=== PATIENT | male | born 1960 | race Hispanic/Latino ===

== ENCOUNTER 2018-03-09 08:53 | Outpatient (CLI) | payer OTHER, SELFPAY ==
[2018-03-09] VITALS (9 sets, daily range): BP systolic 111–142; BP diastolic 68–90; PULSE 73–88; RESP 14–18; TEMP 36.2; O2SAT 96–100
--- NOTE | 2018-03-09 09:22 | DI.RAD.S_ITS ---
PROCEDURE: PAIN C/T INTERLAMINAR INJECT INDICATIONS: Cervical Stenosis with UE radic FINDINGS: Fluoroscopic spot filming was performed to verify placement of spinal needles at the dorsal C6-C7 level(s), as labeled on the films. Appropriate location(s) of the needle tip(s) was confirmed by injection of iodinated contrast. IMPRESSION: Successful C6-7 transplant or epidural needle tip localization for epidural steroid injection. Dictated by: Josh Griffin M.D. on 03/09/2018 at 13:13 Approved by: Josh Griffin M.D. on 03/09/2018 at 13:14
[2018-03-09] MEDS: MIDAZOLAM 5 MG/5 ML VIAL IV (09:50)
[2018-03-09] MEDS: fentaNYL 100 MCG/2 ML INJ IV (09:50)
[2018-03-09] MEDS: LIDOCAINE 1% 20 ML INJ 5 ML INJ (10:00)
[2018-03-09] MEDS: IOPAMIDOL 15 ML VIAL 3 ML INJ (10:00)
[2018-03-09] MEDS: DEXAMETHASONE 10 MG/ML VIAL 30 MG INJ (10:00)
--- NOTE | 2018-03-09 10:15 | PM.PROC.1 ---
Procedures Date/Time Date of procedure: 03/09/18 Time of procedure: 10:15 General Procedure description: PREOP DIAGNOSIS 1. CERVICAL STENOSIS, 2. CERVICAL HNP WITH UPPER EXTREMITY RADICULAR FEATURES, POST OP DIAGNOSIS 1. CERVICAL STENOSIS, 2. CERVICAL HNP WITH UPPER EXTREMITY RADICULAR FEATURES, PROCEDURES 1. FLUORSCOPICALLY GUIDED CONTRAST CONTROLLED INTERLAMINAR EPIDURAL STEROID INJECTION - C6/7 TL CAYLA PHYSICIAN: Kobi Brito, DO INDICATIONS Chinmay is referred by Dr. Nicholas for treatment of Cervical Stenosis with Upper Extremity Paresthesias. FINDINGS Cervical Stenosis due to disc deterioration and nerve root irritation and nerve root irritation DESCRIPTION OF PROCEDURE Fluoroscopically guided, contrast-controlled C6/7 translaminar epidural steroid injection with conscious sedation. Following denial of allergy and review of potential side effects and complications, including, but not necessarily limited to, infection, allergic reaction, local tissue breakdown, temporary as well as permanent nerve injury, stroke, paralysis, and possible , the patient indicated that patient understood and agreed to proceed. An informed consent document was signed by the patient, witnessed by a nurse, and placed in the patient's chart. Additionally, other treatment options including modalities, medications, and physical therapy were reviewed with the patient. After review of previous anaesthesic history and IV conscious sedation the patient was deemed safe to proceed with todays procedure with IV conscious sedation as ASA class II designation. Safety time-out was performed to confirm patient ID, procedure to be performed and site of procedure. IV sedation was accomplished with a combination of 5mg of Versed and 50mcg of Fentanyl administered by the RN after DO order, titrated to patient comfort during the course of the procedure while the patient remained responsive to all verbal commands. In the prone position, following sterile prep and drape of the cervical region, the C6/7 translaminar space was identified fluoroscopically. The skin was anesthetized via a 25-gauge 1.5-inch needle with 1% lidocaine solution. At this point, a 25-gauge, 2.5-inch short bevel spinal needle was atraumatically introduced and advanced under fluoroscopic guidance into epidural space at the C6/7 translaminar space. Depth was confirmed on lateral view. Radiological data, including multiple fluoroscopic views of the cervical spine, reveal a spinal needle at the C6/7 translaminar space. Lateral views then show placement of the needle in the epidural space. Subsequent views show contrast material flowing superiorly and inferiorly in the epidural space. DSA fluoroscopy with live contrast injection, once again, confirmed no vascular or intrathecal uptake. At this point, using loss of resistance technique with saline and air, the epidural space was entered. Following negative aspiration, injection of approximately 1.5 cc of Isovue-200 with live fluoroscopy in the AP view confirmed epidural flow in the epidural space without vascular or intrathecal uptake observed. Subsequently, a test dose of 1 cc of 1% lidocaine solution was injected and patient was observed for two minutes without signs or symptoms of complications, including abdominal pain, shortness of breath, bilateral upper or lower extremity weakness, nausea and vomiting, prior to steroid injection. At this point, 3 cc or 30 mg of dexamethasone was then injected without incident. The patient tolerated the procedure well without signs or symptoms of complications prior to being transferred to the recovery area for further monitoring, The patient was then transferred to the recovery area where they were observed for an appropriate period of time after the injection. The patient reported a VAS score of 6 prior to the procedure and a post-procedure VAS of 0. Total Fluoroscopy Time: 37.0 seconds Total Conscious Time: 24min POST OP INSTRUCTIONS The patient was provided a Pain Log to continue to record their response to the target-specific procedure prior to follow-up visit with the referring provider. Additionally, specific post-injection care instructions and a contact number to our office were provided if concerns arise regarding possible complications associated with the procedure are suspected. Kobi Brito DO Complications: none
== END 2018-03-09 10:45 | disposition home or self-care (01) ==
PROVIDERS: PCP Family Medicine; Visit Provider Physical Medicine & Rehabilitation
DX: M48.02 Spinal stenosis, cervical region (principal); M50.123 Cervical disc disorder at C6-C7 level with radiculopathy; R20.2 Paresthesia of skin; R51 Headache; Z98.890 Other specified postprocedural states
CPT/HCPCS: 62321; 99152; J1100; J2250; J3010

== ENCOUNTER 2018-03-22 08:54 | Outpatient (CLI) | payer OTHER, SELFPAY ==
[2018-03-22] VITALS (11 sets, daily range): BP systolic 125–170; BP diastolic 70–113; PULSE 65–94; RESP 16–20; TEMP 36.1; O2SAT 95–98
--- NOTE | 2018-03-22 08:56 | DI.RAD.S_ITS ---
PROCEDURE: PAIN L/S TRANSFORAMINAL INJECT INDICATIONS: SPONDYLOSIS FINDINGS: Fluoroscopic spot filming was performed to verify placement of spinal needles at the left L5-S1 level(s), as labeled on the films. Appropriate location(s) of the needle tip(s) was confirmed by injection of iodinated contrast. IMPRESSION: Successful left L5-S1 transforaminal needle tip localization for epidural steroid injection. Dictated by: Josh Griffin M.D. on 03/22/2018 at 16:14 Approved by: Josh Griffin M.D. on 03/22/2018 at 16:15
[2018-03-22] MEDS: MIDAZOLAM 5 MG/5 ML VIAL IV (09:45)
[2018-03-22] MEDS: fentaNYL 100 MCG/2 ML INJ 50 MCG IV (09:45)
[2018-03-22] MEDS: IOPAMIDOL 15 ML VIAL 3 ML INJ (09:51)
[2018-03-22] MEDS: BUPIVACAINE 0.25% (PF) VIAL 2 ML INJ (09:51)
[2018-03-22] MEDS: DEXAMETHASONE 10 MG/ML VIAL 20 MG INJ (09:52)
[2018-03-22] MEDS: methylPREDNISolone acetate 80 MG/ML VIAL INJ (09:52)
--- NOTE | 2018-03-22 10:00 | P.PCN_ITS ---
Procedures Date/Time Date of procedure: 03/22/18 Time of procedure: 09:59 General Procedure description: PREOP DIAGNOSIS 1. FORMAINAL STENOSIS WITH LE SYMPTOMS POST OP DIAGNOSIS 1. FORMAINAL STENOSIS WITH LE SYMPTOMS PROCEDURES 1. FLUOROSCOPICALLY GUIDED CONTRAST CONTROLLED TRANSFORAMINAL EPIDURAL STEROID INJECTION - Left L5/S1 PHYSICIAN: Kobi Brito DO INDICATIONS: Chinmay is referred by for treatment of HNP with Left LE Symptoms FINDINGS Foraminal Nerve Root Compression secondary to disc disease and facet hypertrophy DESCRIPTION OF PROCEDURE: Following denial of allergy and review of potential side effects and complications, including, but not necessarily limited to, infection, allergic reaction, local tissue breakdown, stroke, temporary or permanent nerve injury, paralysis, and possible , the patient indicated that the patient understood and agreed to proceed. An informed consent document was signed by the patient, witnessed by a nurse, and placed in the patient's chart. Additionally, other treatment options including medications, modalities, and physical therapy were reviewed with the patient. After review of previous anaesthesic history and IV conscious sedation the patient was deemed safe to proceed with todays procedure with IV conscious sedation as ASA class II designation. Safety time-out was performed to confirm patient ID, procedure to be performed and site of procedure. IV sedation was accomplished with a combination of 5mg of Versed and 50mcg of Fentanyl was administered by the RN after DO order, titrated to patient comfort during the course of the procedure while the patient remained responsive to all verbal commands In the prone position following sterile prep and drape of the lumbar region, the Left L5/S1 posterior neuroforamen was identified fluoroscopically. The skin was anesthetized via a 25-gauge 1.5-inch needle with 1% lidocaine solution. At this point, a 22-gauge 5-inch spinal needle was atraumatically introduced and advanced under fluoroscopic guidance through the posterior Left L5/S1 neuroforamen to approximately the anterior aspect of the canal. Depth was confirmed on lateral view. Following negative aspiration, injection of approximately 1.5 cc of Isovue 200 under live fluoroscopy in the AP view confirmed excellent flow along the nerve root, into the epidural space without vascular or intrathecal uptake observed Radiological data, including multiple fluoroscopic views of the lumbosacral spine, reveal a spinal needle at the Left L5/S1 posterior neuroforamen. Subsequent views show flow of contrast material flowing superiorly and inferiorly along the nerve root confirming epidural flow. Subsequently, a test dose of 1.5 cc of 1% lidocaine solution was administered and patient was observed for two minutes for signs or symptoms of complications , including abdominal pain, shortness of breath, bilateral upper or lower extremity weakness, nausea and vomiting, prior to steroid injection. At this point, a total of 3 cc or 20 mg of dexamethasone and 80mg Depo Medrol was injected without incident. The procedure tolerated the procedure well without signs or symptoms of complications prior to transfer to the recovery area continued monitoring without incident. The patient was then transferred to the recovery area where they were observed for an appropriate time after the injection. The patient reported a VAS score of 7 prior to the procedure and a post-procedure VAS of 0. Total Fluoroscopy Time: 20.9 seconds Total Conscious Sedation Time: 24min POST OP INSTRUCTIONS The patient was provided a Pain Log to continue to record their response to the target-specific procedure prior to follow-up visit with their referring physician. Additionally, specific post-injection care instructions and a contact number to our office were provided if concerns arise regarding possible complications associated with the procedure are suspected. Kobi Brito DO Complications: none
--- NOTE | 2018-03-23 12:49 | PC.NURSE ---
FOLLOW UP CALL MADE, LEFT PHONE MSG WITH CLINIC NUMBER FOR QUESTIONS/CONCERNS.
== END 2018-03-22 10:27 ==
PROVIDERS: PCP Family Medicine; Visit Provider Physical Medicine & Rehabilitation
DX: M47.27 Other spondylosis with radiculopathy, lumbosacral region (principal); M51.17 Intervertebral disc disorders with radiculopathy, lumbosacral region; M48.062 Spinal stenosis, lumbar region with neurogenic claudication; M99.04 Segmental and somatic dysfunction of sacral region
CPT/HCPCS: 64483; 99152; J1040; J1100; J2250; J3010

== ENCOUNTER 2018-05-04 08:05 | Outpatient (CLI) | payer OTHER, SELFPAY ==
[2018-05-04] VITALS (8 sets, daily range): BP systolic 135–171; BP diastolic 81–111; PULSE 77–93; RESP 16–20; TEMP 36.2; O2SAT 96–99
--- NOTE | 2018-05-04 | DI.RAD.S_ITS ---
PROCEDURE: PAIN L/S TRANSFORAMINAL INJECT INDICATIONS: Spondylosis without myelopathy or radiculopathy FINDINGS: Fluoroscopic spot filming was performed to verify placement of spinal needles at the right and left L5-S1 level(s), as labeled on the films. Appropriate location(s) of the needle tip(s) was confirmed by injection of iodinated contrast. Dictated by: Juwan Rosenthal M.D. on 05/04/2018 at 14:28 Approved by: Juwan Rosenthal M.D. on 05/04/2018 at 14:29
[2018-05-04] MEDS: fentaNYL 100 MCG/2 ML INJ IV (09:00)
[2018-05-04] MEDS: MIDAZOLAM 5 MG/5 ML VIAL IV ×2 (09:00)
[2018-05-04] MEDS: IOPAMIDOL 15 ML VIAL 3 ML INJ (09:10)
[2018-05-04] MEDS: BUPIVACAINE 0.25% (PF) VIAL 2 ML INJ (09:10)
[2018-05-04] MEDS: DEXAMETHASONE 10 MG/ML VIAL 20 MG INJ (09:10)
[2018-05-04] MEDS: methylPREDNISolone acetate 80 MG/ML VIAL INJ (09:10)
--- NOTE | 2018-05-04 09:10 | PC.NURSE ---
assisting pt off proc table and transporting back to post op area in wheelchair in stable condition
--- NOTE | 2018-05-04 09:22 | P.PCN_ITS ---
Procedures Date/Time Date of procedure: 05/04/18 Time of procedure: 09:20 General Procedure description: PREOP DIAGNOSIS 1. FORMAINAL STENOSIS WITH LE SYMPTOMS, POST OP DIAGNOSIS 1. FORMAINAL STENOSIS WITH LE SYMPTOMS, PROCEDURES 1.FLUOROSCOPICALLY GUIDED CONTRAST CONTROLLED TRANSFORAMINAL EPIDURAL STEROID INJECTION - RIGHT L5/S1 TFESI PHYSICIAN: Kobi Brito DO INDICATIONS: Chinmay is referred by for treatment of Foraminal Stenosis with right LE Symptoms FINDINGS Foraminal Nerve Root Compression secondary to disc disease and facet hypertrophy DESCRIPTION OF PROCEDURE Following denial of allergy and review of potential side effects and complications, including, but not necessarily limited to, infection, allergic reaction, local tissue breakdown, stroke, temporary or permanent nerve injury, paralysis, and possible , the patient indicated that the patient understood and agreed to proceed. An informed consent document was signed by the patient, witnessed by a nurse, and placed in the patient's chart. Additionally, other treatment options including medications, modalities, and physical therapy were reviewed with the patient. After review of previous anaesthesic history and IV conscious sedation the patient was deemed safe to proceed with todays procedure with IV conscious sedation as ASA class II designation. Safety time-out was performed to confirm patient ID, procedure to be performed and site of procedure. IV sedation was accomplished with a combination of 3mg was administered by the RN after DO order , titrated to patient comfort during the course of the procedure while the patient remained responsive to all verbal commands In the prone position following sterile prep and drape of the lumbar region, the right L5/S1 posterior neuroforamen was identified fluoroscopically. The skin was anesthetized via a 25-gauge 1.5-inch needle with 1% lidocaine solution. At this point, a 22-gauge 5-inch spinal needle was atraumatically introduced and advanced under fluoroscopic guidance through the posterior right L5/S1 neuroforamen to approximately the anterior aspect of the canal. Depth was confirmed on lateral view. Following negative aspiration, injection of approximately 1.5 cc of Isovue 200 under live fluoroscopy in the AP view confirmed excellent flow along the nerve root, into the epidural space without vascular or intrathecal uptake observed Radiological data, including multiple fluoroscopic views of the lumbosacral spine, reveal a spinal needle at the right L5/S1 posterior neuroforamen. Subsequent views show flow of contrast material flowing superiorly and inferiorly along the nerve root confirming epidural flow. Subsequently, a test dose of 1.5 cc of 1% lidocaine solution was administered and patient was observed for two minutes for signs or symptoms of complications , including abdominal pain, shortness of breath, bilateral upper or lower extremity weakness, nausea and vomiting, prior to steroid injection. At this point, a total of 3 cc or 20 mg of dexamethasone and 80mg Depo Medrol was injected without incident. The procedure tolerated the procedure well without signs or symptoms of complications prior to transfer to the recovery area continued monitoring without incident. The patient was then transferred to the recovery area where they were observed for an appropriate time after the injection. The patient reported a VAS score of 7 prior to the procedure and a post-procedure VAS of 0. Total Fluoroscopy Time: 20.9 seconds Total Conscious Sedation Time: 24min POST OP INSTRUCTIONS The patient was provided a Pain Log to continue to record their response to the target-specific procedure prior to follow-up visit with their referring physician. Additionally, specific post-injection care instructions and a contact number to our office were provided if concerns arise regarding possible complications associated with the procedure are suspected. Kobi Brito DO Complications: none
--- NOTE | 2018-05-04 09:40 | PC.NURSE ---
0918 Received pt post procedure from Brooke BACON, pt alert and able to move from w/c to chair on own power. Resumed Monitoring pt.
== END 2018-05-04 10:05 | disposition home or self-care (01) ==
PROVIDERS: PCP Family Medicine; Visit Provider Physical Medicine & Rehabilitation
DX: M48.07 Spinal stenosis, lumbosacral region (principal); M51.17 Intervertebral disc disorders with radiculopathy, lumbosacral region
CPT/HCPCS: 64483; 99152; J1040; J1100; J2250; J3010

== ENCOUNTER 2018-11-22 14:23 | Outpatient (CLI) | payer OTHER, SELFPAY ==
[2018-11-22] VITALS (7 sets, daily range): BP systolic 130–164; BP diastolic 85–97; PULSE 70–81; RESP 16–18; TEMP 36.7; O2SAT 95–100
--- NOTE | 2018-11-22 14:25 | DI.RAD.S_ITS ---
PROCEDURE: PAIN L/S TRANSFORAMINAL INJECT INDICATIONS: SPONDYLOSIS FINDINGS: Fluoroscopic spot filming was performed to verify placement of spinal needles at the L5-S1 level(s), as labeled on the films. Appropriate location(s) of the needle tip(s) was confirmed by injection of iodinated contrast. Dictated by: Juwan Rosenthal M.D. on 11/22/2018 at 16:06 Approved by: Juwan Rosenthal M.D. on 11/22/2018 at 16:06
[2018-11-22] MEDS: MIDAZOLAM 5 MG/5 ML VIAL IV (15:17)
[2018-11-22] MEDS: fentaNYL 100 MCG/2 ML INJ 50 MCG IV (15:17)
[2018-11-22] MEDS: BETAMETHASONE 30 MG/5 ML MDV 12 MG INJ (15:24)
[2018-11-22] MEDS: IOPAMIDOL 15 ML VIAL 3 ML INJ (15:24)
[2018-11-22] MEDS: DEXAMETHASONE 10 MG/ML VIAL 20 MG INJ (15:24)
[2018-11-22] MEDS: BUPIVACAINE 0.25% (PF) VIAL 2 ML INJ (15:24)
--- NOTE | 2018-11-22 15:30 | PC.NURSE ---
ASSISTING PT OFF TABLE AND TRANSPORTING TO POST PROC AREA IN STABLE CONDITION
--- NOTE | 2018-11-22 15:37 | P.PCN_ITS ---
Procedures Date/Time Date of procedure: 11/22/18 Time of procedure: 15:35 General Procedure description: PREOP DIAGNOSIS 1. FORMAINAL STENOSIS WITH LE SYMPTOMS POST OP DIAGNOSIS 1. FORMAINAL STENOSIS WITH LE SYMPTOMS PROCEDURES 1. FLUOROSCOPICALLY GUIDED CONTRAST CONTROLLED TRANSFORAMINAL EPIDURAL STEROID INJECTION - Left L5/S1 PHYSICIAN: Kobi Brito DO INDICATIONS: Chinmay is referred by Dr. Oquendo for treatment of Foraminal Stenosis with Left LE Symptoms FINDINGS Foraminal Nerve Root Compression secondary to disc disease and facet hypertrophy DESCRIPTION OF PROCEDURE: Following denial of allergy and review of potential side effects and complications, including, but not necessarily limited to, infection, allergic reaction, local tissue breakdown, stroke, temporary or permanent nerve injury, paralysis, and possible , the patient indicated that the patient understood and agreed to proceed. An informed consent document was signed by the patient, witnessed by a nurse, and placed in the patient's chart. Additionally, other treatment options including medications, modalities, and physical therapy were reviewed with the patient. After review of previous anaesthesic history and IV conscious sedation the pa tient was deemed safe to proceed with todays procedure with IV conscious sedation as ASA class II designation. Safety time-out was performed to confirm patient ID, procedure to be performed and site of procedure. IV sedation was accomplished with a combination of 5mg of Versed and 50mcg Fentanyl was administered by the RN after DO order, titrated to patient comfort during the course of the procedure while the patient remained responsive to all verbal commands In the prone position following sterile prep and drape of the lumbar region, the Left L5/S1 posterior neuroforamen was identified fluoroscopically. The skin was anesthetized via a 25-gauge 1.5-inch needle with 1% lidocaine solution. At this point, a 22-gauge 5-inch spinal needle was atraumatically introduced and advanced under fluoroscopic guidance through the posterior Left L5/S1 neuroforamen to approximately the anterior aspect of the canal. Depth was confirmed on lateral view. Following negative aspiration, injection of approximately 1.5 cc of Isovue 200 under live fluoroscopy in the AP view confirmed excellent flow along the nerve root, into the epidural space without vascular or intrathecal uptake observed Radiological data, including multiple fluoroscopic views of the lumbosacral spine, reveal a spinal needle at the Left L5/S1 posterior neuroforamen. Subsequent views show flow of contrast material flowing superiorly and inferiorly along the nerve root confirming epidural flow. Subsequently, a test dose of 1.5 cc of 1% lidocaine solution was administered and patient was observed for two minutes for signs or symptoms of complications, including abdominal pain, shortness of breath, bilateral upper or lower extremity weakness, nausea and vomiting, prior to steroid injection. At this point, a total of 2cc or 20mg of dexamethasone was injected without incident. The procedure tolerated the procedure well without signs or symptoms of complications prior to transfer to the recovery area continued monitoring without incident. The patient was then transferred to the recovery area where they were observed for an appropriate time after the injection. The patient reported a VAS score of 7 prior to the procedure and a post-procedure VAS of 0. Total Fluoroscopy Time: 20.9 seconds Total Conscious Sedation Time: 24min POST OP INSTRUCTIONS The patient was provided a Pain Log to continue to record their response to the target-specific procedure prior to follow-up visit with their referring physician. Additionally, specific post-injection care instructions and a contact number to our office were provided if concerns arise regarding possible complications associated with the procedure are suspected. Kobi Brito DO Complications: none
--- NOTE | 2018-11-22 15:57 | PC.NURSE ---
Pt returned via wheelchair awake and alert and able to move from w/c to chair without problems. Resumed monitoring from Brooke BACON.
== END 2018-11-22 16:04 ==
LOC: RAD 14:24
PROVIDERS: PCP Family Medicine; Visit Provider Physical Medicine & Rehabilitation
DX: M48.07 Spinal stenosis, lumbosacral region (principal); M51.17 Intervertebral disc disorders with radiculopathy, lumbosacral region; M96.1 Postlaminectomy syndrome, not elsewhere classified
CPT/HCPCS: 64483; 99152; J0702; J1100; J2250; J3010

== ENCOUNTER 2019-08-31 08:46 | Outpatient (CLI) | payer OTHER, SELFPAY ==
[2019-08-31] VITALS (10 sets, daily range): BP systolic 133–169; BP diastolic 86–105; PULSE 77–86; RESP 14–16; TEMP 36.7; O2SAT 95–99
--- NOTE | 2019-08-31 08:47 | DI.RAD.S_ITS ---
PROCEDURE: PAIN L/SI FACET INJ/BLK 1STL INDICATIONS: SPONDYLOSIS FINDINGS: Fluoroscopic spot filming was performed to verify placement of spinal needles at the L3, L4, L5 level(s), as labeled on the films. Appropriate location(s) of the needle tip(s) was confirmed by injection of iodinated contrast. Dictated by: Juwan Rosenthal M.D. on 08/31/2019 at 13:29 Approved by: Juwan Rosenthal M.D. on 08/31/2019 at 13:29
[2019-08-31] MEDS: MIDAZOLAM 5 MG/5 ML VIAL IV (09:35)
[2019-08-31] MEDS: fentaNYL 100 MCG/2 ML INJ 50 MCG IV (09:36)
[2019-08-31] MEDS: IOPAMIDOL 15 ML VIAL 3 ML INJ (09:40)
[2019-08-31] MEDS: BUPIVACAINE 0.5% (PF) VIAL 5 ML INJ (09:41)
--- NOTE | 2019-08-31 09:43 | PC.NURSE ---
ASSISTING PT OFF TABLE AND TRANSPORTING TO POST PROC AREA IN STABLE CONDITION. PASSING RN CARE OF PT OFF TO SKYLA Granados RN.
--- NOTE | 2019-08-31 09:44 | P.PCN_ITS ---
Procedures Date/Time Date of procedure: 08/31/19 Time of procedure: 09:44 General Procedure description: POST OP DIAGNOSIS 1. FACET ARTHROPATHY PROCEDURES 1. Left L4, L5 and S1 MB BLOCKS PHYSICIAN: Kobi Brito, INDICATIONS Chinmay is referred by and Jere for treatment of Left Axial LBP. DESCRIPTION OF PROCEDURE Fluoroscopically guided, contrast-controlled left L3, L4, L5 medial branch blocks with 0.5cc of 0.5% Marcaine. Following review of allergy and review of potential side effects and complications, including, but not necessarily limited to, infection, allergic reaction, local tissue breakdown, nerve injury, paralysis, stroke and possible , the patient indicated that the patient understood and agreed to proceed. An informed consent document was signed by the patient, witnessed by a nurse, and placed in the patient's chart. After review of previous anaesthesic history and IV conscious sedation the patient was deemed safe to proceed with todays procedure with IV conscious sedation as ASA class II designation. Safety time-out was performed to confirm patient ID, procedure to be performed and site of procedure. IV sedation was accomplished with a combination of 5mg of Versed and 50mcg of Fentanyl was administered by the RN after DO order, titrated to patient comfort during the course of the procedure while the patient remained responsive to all verbal commands. In the prone position, following sterile prep and drape of the lumbar region, the left L3, L4, L5 anatomical location of the medial branch of the dorsal ramus was identified fluoroscopically. Subsequently an anesthetic skin wheal using 1% lidocaine solution was initiated at each of the anatomical spots. Subsequently then a 22-gauge 3.5-inch spinal needle was atraumatically introduced and advanced under fluoroscopic guidance at each of the corresponding sites at the left L3, L4, L5 MB. After negative aspiration, 0.2 cc of Isovue 200 was injected, confirming placement without vascular or intrathecal uptake. S ubsequently then 0.5cc of 0.5% Marcaine solution was injected at each of the corresponding sites at the left L3, L4, L5 medial branch locations. The patient tolerated the procedure well without signs or symptoms of complications. The patient tolerated the procedure well without signs or symptoms of complications prior to transfer to the recovery area continued monitoring without incident. Post-procedure, the patient was monitored initiating provocative activities to measure the amount of relief from block of the facetogenic pain. The patient reported a VAS of 7 prior to the procedure and a post-procedure VAS of 1. It has been a pleasure to assist in the diagnostic and therapeutic care of your patient. Total Fluoroscopy Time: 4seconds Total Conscious Sedation Time: 24min POST OP INSTRUCTIONS The patient was provided with a Pain Log to complete over the next several hours and subsequent days prior to the patient's follow up with the ordering physician. If the patient has highway design engineer relief to the solution applied, then they may be a candidate for medial branch rhizotomy. The patient is aware, was provided, once again, with a Pain Log and will follow up with the referring physician for review and clinical correlation Kobi Brito DO Complications: none
--- NOTE | 2019-08-31 10:22 | PC.NURSE ---
Patient arrived from procedure via w/c accompanied by Brooke. Pt transferred to chair with standby assist, denies pain
== END 2019-08-31 10:10 | disposition home or self-care (01) ==
LOC: RAD 08:47
PROVIDERS: PCP Family Medicine; Referring Provider Physical Medicine & Rehabilitation; Visit Provider Physical Medicine & Rehabilitation
DX: M47.816 Spondylosis without myelopathy or radiculopathy, lumbar region (principal)
CPT/HCPCS: 64493; 64494; 99152; J2250; J3010

== ENCOUNTER → 2019-11-18 11:36 | Outpatient (CLI) | payer OTHER, SELFPAY ==
[2019-11-19 21:37] LABS: COVID19 Sendout Not Detected (Not Detect)
== END ==
PROVIDERS: PCP Family Medicine; Visit Provider Family Medicine
DX: Z01.818 Encounter for other preprocedural examination (principal)
CPT/HCPCS: 87635

== ENCOUNTER 2019-11-21 12:22 | Outpatient (CLI) | payer OTHER, SELFPAY ==
[2019-11-21] VITALS (9 sets, daily range): BP systolic 110–164; BP diastolic 68–101; PULSE 63–77; RESP 15–17; TEMP 36.1; O2SAT 95–99
--- NOTE | 2019-11-21 12:23 | DI.RAD.S_ITS ---
PROCEDURE: PAIN L/SI FACET INJ/BLK 1STL INDICATIONS: SPONDYLOSIS FINDINGS: Fluoroscopic spot filming was performed to verify placement of spinal needles at the L4, L5, S1 level(s), as labeled on the films. Appropriate location(s) of the needle tip(s) was confirmed by injection of iodinated contrast. Dictated by: Juwan Rosenthal M.D. on 11/21/2019 at 14:12 Approved by: Juwan Rosenthal M.D. on 11/21/2019 at 14:12
[2019-11-21] MEDS: fentaNYL 100 MCG/2 ML INJ 50 MCG IV (13:21)
[2019-11-21] MEDS: MIDAZOLAM 5 MG/5 ML VIAL IV (13:21)
[2019-11-21] MEDS: IOPAMIDOL 15 ML VIAL 3 ML INJ (13:28)
[2019-11-21] MEDS: LIDOCAINE 2% INJ SDV 1 ML INJ (13:29)
--- NOTE | 2019-11-21 13:33 | PC.NURSE ---
ASSISTING PT OFF TABLE AND TRANSPORTING TO POST PROC AREA IN STABLE CONDITION. PASSING RN CARE OF PT OFF TO [facility]LE[facility] TIJERINA.
--- NOTE | 2019-11-21 13:39 | PM.PROC.1 ---
Procedures Date/Time Date of procedure: 11/21/19 Time of procedure: 13:39 General Procedure description: POST OP DIAGNOSIS 1. FACET ARTHROPATHY PROCEDURES 1. Left L4, L5 and S1 MB BLOCKS PHYSICIAN: Kobi Brito, INDICATIONS Chinmay is referred by and Dr. Nicholas for treatment of Left Axial LBP. DESCRIPTION OF PROCEDURE Fluoroscopically guided, contrast-controlled left L4, L5 and S1 medial branch blocks with 0.5cc of 0.5% Marcaine. Following review of allergy and review of potential side effects and complications, including, but not necessarily limited to, infection, allergic reaction, local tissue breakdown, nerve injury, paralysis, stroke and possible , the patient indicated that the patient understood and agreed to proceed. An informed consent document was signed by the patient, witnessed by a nurse, and placed in the patient's chart. After review of previous anaesthesic history and IV conscious sedation the patient was deemed safe to proceed with todays procedure with IV conscious sedation as ASA class II designation. Safety time-out was performed to confirm patient ID, procedure to be performed and site of procedure. IV sedation was accomplished with a combination of 5mg of Versed and 50mcg of Fentanyl was administered by the RN after DO order, titrated to patient comfort during the course of the procedure while the patient remained responsive to all verbal commands. In the prone position, following sterile prep and drape of the lumbar region, the left L4, L5 and S1 anatomical location of the medial branch of the dorsal ramus was identified fluoroscopically. Subsequently an anesthetic skin wheal using 1% lidocaine solution was initiated at each of the anatomical spots. Subsequently then a 22-gauge 3.5-inch spinal needle was atraumatically introduced and advanced under fluoroscopic guidance at each of the corresponding sites at the left L4, L5 and S1 MB. After negative aspiration, 0.2 cc of Isovue 200 was injected, confirming placement without vascular or intrathecal uptake. Subsequently then 0.5 cc of 2% Lidocaine solution was injected at each of the corresponding sites at the left L4, L5 and S1 medial branch locations. The patient tolerated the procedure well without signs or symptoms of complications. The patient tolerated the procedure well without signs or symptoms of complications prior to transfer to the recovery area continued monitoring without incident. Post-procedure, the patient was monitored initiating provocative activities to measure the amount of relief from block of the facetogenic pain. The patient reported a VAS of 7 prior to the procedure and a post-procedure VAS of 0. It has been a pleasure to assist in the diagnostic and therapeutic care of your patient. Total Fluoroscopy Time: 8 seconds Total Conscious Sedation Time: 24min POST OP INSTRUCTIONS The patient was provided with a Pain Log to complete over the next several hours and subsequent days prior to the patient's follow up with the ordering physician. If the patient has double end production grinder relief to the solution applied, then they may be a candidate for medial branch rhizotomy. The patient is aware, was provided, once again, with a Pain Log and will follow up with the referring physician for review and clinical correlation Kobi Brito DO Complications: none
== END 2019-11-21 13:59 | disposition home or self-care (01) ==
LOC: RAD 12:23
PROVIDERS: PCP Family Medicine; Referring Provider Physical Medicine & Rehabilitation; Visit Provider Physical Medicine & Rehabilitation
DX: M47.816 Spondylosis without myelopathy or radiculopathy, lumbar region (principal); M47.817 Spondylosis without myelopathy or radiculopathy, lumbosacral region; M54.5 Low back pain
CPT/HCPCS: 64493; 64494; 99152; J2250; J3010

== ENCOUNTER → 2020-02-12 08:45 | Outpatient (CLI) | payer OTHER, BC, SELFPAY ==
[2020-02-13 07:24] LABS: COVID19 Sendout Not Detected (Not Detect)
== END ==
PROVIDERS: PCP Family Medicine; Visit Provider Physician Assistant
DX: Z11.59 Encounter for screening for other viral diseases (principal)
CPT/HCPCS: 87635

== ENCOUNTER 2020-02-15 07:05 | Outpatient (CLI) | payer OTHER, SELFPAY ==
[2020-02-15] VITALS (9 sets, daily range): BP systolic 149–186; BP diastolic 81–97; PULSE 63–75; RESP 13–23; TEMP 35.4; O2SAT 97–100
--- NOTE | 2020-02-15 07:37 | DI.RAD.S_ITS ---
PROCEDURE: PAIN L/S MED/LAT N RFA INDICATIONS: SPONDYLOSIS COMPARISON: None. FINDINGS: Fluoroscopic spot filming was performed to verify placement of spinal needles at the left L4, L5 and S1 level(s), as labeled on the films. Appropriate location(s) of the needle tip(s) was confirmed by injection of iodinated contrast. IMPRESSION: Fluoroscopy for pain management. Dictated by: Issac Jones M.D. on 02/15/2020 at 10:02 Approved by: Issac Jones M.D. on 02/15/2020 at 10:03
--- NOTE | 2020-02-15 08:34 | PC.NURSE ---
Patient is A& O able to make needs known. Green pain log reviewed with post injection instructions. Has no questions or concerns at this time.
[2020-02-15] MEDS: LIDOCAINE 1% 20 ML 10 ML INJ (08:53)
[2020-02-15] MEDS: BUPIVACAINE 0.5% (PF) VIAL 5 ML INJ (08:54)
[2020-02-15] MEDS: MIDAZOLAM 5 MG/5 ML VIAL IV (08:54)
[2020-02-15] MEDS: fentaNYL 100 MCG/2 ML INJ 50 MCG IV (08:54)
--- NOTE | 2020-02-15 09:10 | P.PCN_ITS ---
Date/Time/Diagnoses Date of procedure: 02/15/20 Time of procedure: 09:10 Pre-procedure diagnosis: 1. RECALCITRANT FACET ARTHROPATHY Post-procedure diagnosis: same Procedure Notes Procedure: 1. LEFT L3, L4 AND L5 MEDIAL BRANCH RADIOFREQUENCY NEUROTOMY Indications: Chinmay is referred by for treatment of facet arthropathy. Physician: Kobi Brito Total Fluoroscopy time (seconds): 19 Total sedation minutes: 16 Complications: none Procedure in detail & Post-procedure care: DESCRIPTION OF PROCEDURE Left L3, L4 and L5 medial branch radio-frequency neurotomy The patient is well known to this clinic having undergone previous facet injections with good but temporary relief. The patient has experienced appropriate, concordant relief with previous facet and median branch blocks but the patient's pain has been recalcitrant to further conservative measures. Therefore, based upon the patient's relief and persistent symptoms, the patient is considered an appropriate candidate for facet rhizotomy. All of the patient's questions regarding the risks versus benefits of the procedure, including, but not limited to, bleeding, infection, temporary as well as lasting nerve injury, paralysis, stroke, and , as well treatment alternatives were answered to satisfaction. After obtaining informed consent, denial of pertinent drug allergies, as well as being made aware of the potential risks of bleeding, infection, spinal cord trauma, paralysis, temporary and permanent nerve damage, seizure, stroke, and possible , the patient was brought to the fluoroscopy suite and positioned prone on the fluoroscopy table. The lumbar region was prepped with Betadine and covered with a fenestrated drape in the usual sterile fashion. Appropriate monitors applied including pulse oximeter, pulse, and blood pressure for regular monitoring throughout the procedure. After review of previous anaesthesic history and IV conscious sedation the patient was deemed safe to proceed with today?s procedure with IV conscious sedation as ASA class II designation. Safety time-out was performed to confirm patient ID, procedure to be performed and site of procedure. IV sedation was accomplished with a combination of 5mg of Versed and 50mcg of Fentanyl administered by the RN after DO order, titrated to patient comfort during the course of the procedure while the patient remained responsive to all verbal commands. After local infiltration using 1% lidocaine, under fluoroscopic guidance, a 10- cm RF insulated needle with a 10-mm active tip was positioned parallel to the junction of the left the superior articulating process where the L3 medial branch resides. Needle placement was confirmed with sensory stimulation at 50 Hz, with motor stimulation of .5v on the left which produced local stimulation without radicular component. The stimulation was then increased to 1.5v with, once again, only local multifidus stimulation without radicular component. This was then followed by two discreet lesions performed at 80 degrees Celsius for 90 seconds each. The needle was then removed and the identical procedure was performed along the length of the left L4 medial branch with motor stimulation at .7v on the left. The identical procedure was once again performed along the length of the left L5 and medial branch with motor stimulation of .5v. The patient tolerated the procedure well without signs or symptoms of complications prior to transfer to the recovery area continued monitoring without incident. The patient was then transferred to the recovery area where they were observed for an appropriate period of time after the injection. The patient reported a VAS score of 7 prior to the procedure and a post-procedure VAS of 0. POST OP INSTRUCTIONS The patient was provided a Pain Log to continue to record the patient's response to the target-specific procedure prior to the patient's follow-up visit with the referring physician. Additionally, specific post-injection care instructions and a contact number to our office were provided if concerns arise regarding possible complications associated with the procedure are suspected.
--- NOTE | 2020-02-15 09:13 | PC.NURSE ---
pt tolerated procedure well, assisted from table to wc. monitoring resumed in pre proc room
--- NOTE | 2020-02-15 09:33 | PC.NURSE ---
Patient was steady on his feet. Denies any pain. Left via W/c picked up. Has no questions or concerns at this time.
== END 2020-02-15 09:20 | disposition home or self-care (01) ==
PROVIDERS: PCP Family Medicine; Referring Provider Family Medicine; Visit Provider Physical Medicine & Rehabilitation
DX: M47.816 Spondylosis without myelopathy or radiculopathy, lumbar region (principal)
CPT/HCPCS: 64635; 64636; 99152; 99153; J2250; J3010

== ENCOUNTER 2020-04-25 07:30 | Outpatient (CLI) | payer OTHER, BC, SELFPAY ==
--- NOTE | 2020-04-25 07:32 | DI.RAD.S_ITS ---
PROCEDURE: PAIN L/SI FACET INJ/BLK 1STL INDICATIONS: SPONDYLOSIS COMPARISON: None. FINDINGS: Fluoroscopic spot filming was performed to verify placement of spinal needles at the right L3, L4, and L5 level(s), as labeled on the films. Appropriate location(s) of the needle tip(s) was confirmed by injection of iodinated contrast. IMPRESSION: Fluoroscopy for pain management. Dictated by: Issac Jones M.D. on 04/25/2020 at 9:24 Approved by: Issac Jones M.D. on 04/25/2020 at 9:25
[2020-04-25 07:42] VITALS: BP 176/97; PULSE 75; RESP 16; TEMP 36.1; O2SAT 95
[2020-04-25 08:35] VITALS: BP 179/100; PULSE 84; RESP 14; O2SAT 97
[2020-04-25] MEDS: LIDOCAINE 1% 20 ML 10 ML INJ (08:37)
[2020-04-25] MEDS: BUPIVACAINE 0.5% (PF) VIAL 2 ML INJ (08:37)
[2020-04-25] MEDS: IOPAMIDOL 15 ML VIAL 3 ML INJ (08:37)
[2020-04-25 08:40] VITALS: BP 201/90; PULSE 77; RESP 16; O2SAT 99
[2020-04-25 08:42] VITALS: BP 199/104; PULSE 72; RESP 14; O2SAT 98
--- NOTE | 2020-04-25 08:47 | PM.PROC.IR.1 ---
Date/Time/Diagnoses Date of procedure: 04/25/20 Time of procedure: 08:47 Pre-procedure diagnosis: 1. FACET ARTHROPATHY Post-procedure diagnosis: same Procedure Notes Procedure: 1. Right L3, L4 and L5 MB BLOCKS Indications: Chinmay is referred by Dr. Nicholas and Dr. Oquendo for treatment of Right Axial LBP. Physician: Kobi Brito Total Fluoroscopy time (seconds): 9 Total sedation minutes: 0 Complications: none Procedure in detail & Post-procedure care: DESCRIPTION OF PROCEDURE Fluoroscopically guided, contrast-controlled right L3, L4 and L5 medial branch blocks with 0.5cc of 0.5% Marcaine. Following review of allergy and review of potential side effects and complications, including, but not necessarily limited to, infection, allergic reaction, local tissue breakdown, nerve injury, paralysis, stroke and possible , the patient indicated that the patient understood and agreed to proceed. An informed consent document was signed by the patient, witnessed by a nurse, and placed in the patient's chart. After review of previous anaesthesic history and IV conscious sedation the patient was deemed safe to proceed with today?s procedure with IV conscious sedation as ASA class II designation. Safety time-out was performed to confirm patient ID, procedure to be performed and site of procedure. IV sedation was deemed unnecessary and thus not administered by the RN after DO order, titrated to patient comfort during the course of the procedure while the patient remained responsive to all verbal commands In the prone position, following sterile prep and drape of the lumbar region, the right L3, L4 and L5 anatomical location of the medial branch of the dorsal ramus was identified fluoroscopically. Subsequently an anesthetic skin wheal using 1% lidocaine solution was initiated at each of the anatomical spots. Subsequently then a 22-gauge 3.5-inch spinal needle was atraumatically introduced and advanced under fluoroscopic guidance at each of the corresponding sites at the right L3, L4 and L5 MB. After negative aspiration, 0.2 cc of Isovue 200 was injected, confirming placement without vascular or intrathecal uptake. Subsequently then 0.5cc of 0.5% Marcaine solution was injected at each of the corresponding sites at the right L3, L4 and L5 medial branch locations. The patient tolerated the procedure well without signs or symptoms of complications. The procedure tolerated the procedure well without signs or symptoms of complications prior to transfer to the recovery area continued monitoring without incident. Post-procedure, the patient was monitored initiating provocative activities to measure the amount of relief from block of the facetogenic pain. The patient reported a VAS of 7 prior to the procedure and a post-procedure VAS of 1. It has been a pleasure to assist in the diagnostic and therapeutic care of your patient. POST OP INSTRUCTIONS The patient was provided with a Pain Log to complete over the next several hours and subsequent days prior to the patient's follow up with the ordering physician. If the patient has refrigerated national truck driver relief to the solution applied, then they may be a candidate for medial branch rhizotomy. The patient is aware, was provided, once again, with a Pain Log and will follow up with the referring physician for review and clinical correlation.
[2020-04-25 08:50] VITALS: BP 165/91; PULSE 78; RESP 16; O2SAT 98
== END 2020-04-25 09:00 | disposition home or self-care (01) ==
LOC: RAD 07:31
PROVIDERS: PCP Family Medicine; Referring Provider Family Medicine; Visit Provider Physical Medicine & Rehabilitation
DX: M47.816 Spondylosis without myelopathy or radiculopathy, lumbar region (principal); M54.5 Low back pain
CPT/HCPCS: 64493; 64494; J2250; J3010

== ENCOUNTER → 2020-06-04 09:14 | Outpatient (CLI) | payer OTHER, BC, SELFPAY ==
[2020-06-04 11:23] LABS: COVID19 -Nasal RAPID Negative (Negative)
== END ==
PROVIDERS: PCP Family Medicine; Visit Provider Physical Medicine & Rehabilitation
DX: Z01.812 Encounter for preprocedural laboratory examination (principal); Z11.59 Encounter for screening for other viral diseases
CPT/HCPCS: 87635; C9803

== ENCOUNTER 2020-06-06 08:04 | Outpatient (CLI) | payer OTHER, BC, SELFPAY ==
[2020-06-06] VITALS (9 sets, daily range): BP systolic 137–187; BP diastolic 79–91; PULSE 57–72; RESP 12–21; TEMP 36.2; O2SAT 95–99
--- NOTE | 2020-06-06 08:12 | DI.RAD.S_ITS ---
PROCEDURE: XR CERVICAL SPINE 4V OR 5V INDICATIONS: C6/7 TL CAYLA TECHNIQUE: 6 views of the cervical spine acquired. COMPARISON: [facility], CT, CT CERVICAL SPINE WITHOUT CONTRAST, 08/20/2017, 8:15. [facility], CT, CT CERVICAL SPINE WITHOUT CONTRAST, 12/22/2019, 11:28. FINDINGS: Bones: No fractures or dislocations to the T1 level. Oblique images demonstrate no bony foraminal stenoses. Note is made of prior interbody disc prosthesis devices in stable position from prior imaging, at C5-6 and C6-7. Mild foraminal stenosis, symmetric bilaterally, from C4 through C7 is again noted. No appreciable worsening. Soft tissues: No prevertebral soft tissue swelling. IMPRESSION: Stable postsurgical changes at C5-6 and C6-7 of interbody disc prosthesis devices, with stable mild intervertebral neural foraminal stenosis again noted. Source of new pain is not seen. Dictated by: Josh Griffin M.D. on 06/06/2020 at 10:32 Approved by: Josh Griffin M.D. on 06/06/2020 at 10:34
--- NOTE | 2020-06-06 08:12 | DI.RAD.S_ITS ---
PROCEDURE: PAIN C/T INTERLAMINAR INJECT INDICATIONS: SPINAL STENOSIS COMPARISON: [facility], , PAIN C/T INTERLAMINAR INJECT, 03/09/2018, 9:57. FINDINGS: Fluoroscopic spot filming was performed to verify placement of a spinal needle at the C6-C7 level, as labeled on the films. Appropriate location of the needle tip was confirmed by injection of iodinated contrast. IMPRESSION: Intraprocedural examination within normal limits. Dictated by: Devonte Jimenez M.D. on 06/06/2020 at 9:28 Approved by: Devonte Jimenez M.D. on 06/06/2020 at 9:28
[2020-06-06] MEDS: fentaNYL 100 MCG/2 ML INJ IV (09:18)
[2020-06-06] MEDS: fentaNYL 100 MCG/2 ML INJ 50 MCG IV (09:18)
[2020-06-06] MEDS: MIDAZOLAM 5 MG/5 ML VIAL IV (09:18)
[2020-06-06] MEDS: DEXAMETHASONE 10 MG/ML VIAL 30 MG INJ (09:39)
[2020-06-06] MEDS: IOPAMIDOL 15 ML VIAL 3 ML INJ (09:39)
[2020-06-06] MEDS: BUPIVACAINE 0.25% (PF) VIAL 2 ML INJ (09:39)
--- NOTE | 2020-06-06 09:39 | PM.PROC.IR.1 ---
Date/Time/Diagnoses Date of procedure: 06/06/20 Time of procedure: 09:40 Pre-procedure diagnosis: 1. CERVICAL STENOSIS, 2. CERVICAL HNP WITH UPPER EXTREMITY RADICULAR FEATURES Post-procedure diagnosis: same Procedure Notes Procedure: 1. FLUORSCOPICALLY GUIDED CONTRAST CONTROLLED INTERLAMINAR EPIDURAL STEROID INJECTION - C6/7 TL CAYLA Indications: Chinmay is referred by Dr. Nicholas and Dr. Oquendo for treatment of Cervical HNP with Upper Extremity Paresthesias. Physician: Kobi Brito Total Fluoroscopy time (seconds): 48 Total sedation minutes: 18 Complications: none Procedure in detail & Post-procedure care: FINDINGS Cervical Stenosis due to disc deterioration and nerve root irritation and nerve root irritation DESCRIPTION OF PROCEDURE Fluoroscopically guided, contrast-controlled C6/7 translaminar epidural steroid injection with conscious sedation. Following review of allergy and review of potential side effects and complications, including, but not necessarily limited to, infection, allergic reaction, local tissue breakdown, temporary as well as permanent nerve injury, stroke, paralysis, and possible , the patient indicated that patient understood and agreed to proceed. An informed consent document was signed by the patient, witnessed by a nurse, and placed in the patient's chart. Additionally, other treatment options including modalities, medications, and physical therapy were reviewed with the patient. After review of previous anaesthesic history and IV conscious sedation the patient was deemed safe to proceed with today?s procedure with IV conscious sedation as ASA class II designation. Safety time-out was performed to confirm patient ID, procedure to be performed and site of procedure. IV sedation was accomplished with a combination of 5mg of Versed and 100mcg of Fentanyl administered by the RN after DO order, titrated to patient comfort during the course of the procedure while the patient remained responsive to all verbal commands. In the prone position, following sterile prep and drape of the cervical region, the C6/7 translaminar space was identified fluoroscopically. The skin was anesthetized via a 25-gauge 1.5-inch needle with 1% lidocaine solution. At this point, a 25-gauge, 2.5-inch short bevel spinal needle was atraumatically introduced and advanced under fluoroscopic guidance into epidural space at the C6/7 translaminar space. Depth was confirmed on lateral view. Radiological data, including multiple fluoroscopic views of the cervical spine, reveal a spinal needle at the C6/7 translaminar space. Lateral views then show placement of the needle in the epidural space. Subsequent views show contrast material flowing superiorly and inferiorly in the epidural space. DSA fluoroscopy with live contrast injection, once again, confirmed no vascular or intrathecal uptake. At this point, using loss of resistance technique with saline and air, the epidural space was entered. Following negative aspiration, injection of approximately 1.5 cc of Isovue-200 with live fluoroscopy in the AP view confirmed epidural flow in the epidural space without vascular or intrathecal uptake observed. Subsequently, a test dose of 1 cc of 1% lidocaine solution was injected and patient was observed for two minutes without signs or symptoms of complications, including abdominal pain, shortness of breath, bilateral upper or lower extremity weakness, nausea and vomiting, prior to steroid injection. At this point, 3cc or 30mg of dexamethasone was then injected without incident. The patient tolerated the procedure well without signs or symptoms of complications prior to being transferred to the recovery area for further monitoring, The patient was then transferred to the recovery area where they were observed for an appropriate period of time after the injection. The patient reported a VAS score of 6 prior to the procedure and a post-procedure VAS of 0. POST OP INSTRUCTIONS The patient was provided a Pain Log to continue to record their response to the target-specific procedure prior to follow-up visit with the referring provider. Additionally, specific post-injection care instructions and a contact number to our office were provided if concerns arise regarding possible complications associated with the procedure are suspected.
== END 2020-06-06 10:02 | disposition home or self-care (01) ==
PROVIDERS: PCP Family Medicine; Referring Provider Family Medicine; Visit Provider Physical Medicine & Rehabilitation
DX: M48.02 Spinal stenosis, cervical region (principal); M50.123 Cervical disc disorder at C6-C7 level with radiculopathy; R20.2 Paresthesia of skin
CPT/HCPCS: 62321; 72050; 99152; J1100; J2250; J3010

== ENCOUNTER → 2020-07-24 08:26 | Outpatient (CLI) | payer OTHER, BC, SELFPAY ==
--- NOTE | 2020-07-24 08:27 | DI.RAD.S_ITS ---
PROCEDURE: XR LUMBAR SPINE MIN 4V INDICATIONS: lbp TECHNIQUE: 5 views of the lumbar spine were acquired. COMPARISON: [facility], MR, MR LUMBAR SPINE WITHOUT CONTRAST, 03/01/2018, 11:12. [facility], CR, XR LUMBAR SPINE WITH OBLIQUES, 02/14/2018, 8:47. [facility], CR, L-SPINE 2-3 VIEWS, 11/06/2014, 0:00. FINDINGS: Bones: 5 nonrib-bearing vertebrae are present. There is slightly dextroscoliotic bony alignment centered at L2. No vertebral body compression fractures. No suspicious bony lesions. The pattern of degenerative disc disease and facet osteoarthritis is little if any change from the comparison study 02/14/18. No compression fracture has developed. Soft tissues: Overlying bowel gas pattern is normal. No suspicious soft tissue calcifications. Oblique images: No pars defects. IMPRESSION: Previously present degenerative disc disease and facet osteoarthritis is moderate to moderately severe over time, without appreciable progression from 2018 to the current study. No compression fracture or subluxation is found. Multilevel spinal and foraminal stenosis would be expected. Dictated by: Josh Griffin M.D. on 07/24/2020 at 9:05 Approved by: Josh Griffin M.D. on 07/24/2020 at 9:07
== END ==
PROVIDERS: PCP Family Medicine; Referring Provider Physical Medicine & Rehabilitation; Visit Provider Physical Medicine & Rehabilitation
DX: M47.816 Spondylosis without myelopathy or radiculopathy, lumbar region (principal); M47.817 Spondylosis without myelopathy or radiculopathy, lumbosacral region; M96.1 Postlaminectomy syndrome, not elsewhere classified; M51.36 Other intervertebral disc degeneration, lumbar region; M54.12 Radiculopathy, cervical region; Z98.890 Other specified postprocedural states
CPT/HCPCS: 72110; 99214

== ENCOUNTER → 2020-08-20 14:06 | Outpatient (CLI) | payer OTHER, BC, SELFPAY ==
[2020-08-20 15:53] LABS: COVID19 -Nasal RAPID Negative (Negative)
== END ==
PROVIDERS: PCP Family Medicine; Visit Provider Physical Medicine & Rehabilitation
DX: Z20.822 Contact with and (suspected) exposure to COVID-19 (principal)
CPT/HCPCS: 87635; C9803

== ENCOUNTER 2020-08-22 12:15 | Outpatient (CLI) | payer OTHER, BC, SELFPAY ==
[2020-08-22] VITALS (9 sets, daily range): BP systolic 109–145; BP diastolic 54–84; PULSE 63–71; RESP 12–18; TEMP 36.4; O2SAT 95–98
--- NOTE | 2020-08-22 12:17 | DI.RAD.S_ITS ---
PROCEDURE: PAIN L/SI FACET INJ/BLK 1STL INDICATIONS: SPONDYLOSIS COMPARISON: [facility], XA, PAIN L/SI FACET INJ/BLK 1STL, 04/25/2020, 8:35. [facility], XA, PAIN L/SI FACET INJ/BLK 1STL, 11/21/2019, 12:24. FINDINGS: Fluoroscopic spot filming was performed to verify placement of spinal needles at the L3, L4, and L5 neural foraminal level(s), as labeled on the films. Appropriate location(s) of the needle tip(s) was confirmed by injection of iodinated contrast. IMPRESSION: Successful right-sided neuroforaminal localization for medial branch block procedures at L3, L4 and L5. Dictated by: Josh Griffin M.D. on 08/22/2020 at 13:33 Approved by: Josh Griffin M.D. on 08/22/2020 at 13:35
[2020-08-22] MEDS: MIDAZOLAM 5 MG/5 ML VIAL IV (13:07)
[2020-08-22] MEDS: IOPAMIDOL 15 ML VIAL 3 ML INJ (13:11)
[2020-08-22] MEDS: BUPIVACAINE 0.5% (PF) VIAL 5 ML INJ (13:11)
--- NOTE | 2020-08-22 13:19 | P.PCN_ITS ---
Date/Time/Diagnoses Date of procedure: 08/22/20 Time of procedure: 13:19 Pre-procedure diagnosis: 1. FACET ARTHROPATHY Post-procedure diagnosis: same Procedure Notes Procedure: 1. Right L3, L4 and L5 MB BLOCKS Indications: Chinmay is referred by Drs. Nicholas and Jere for treatment of Right Axial LBP. Physician: Kobi Brito Total Fluoroscopy time (seconds): 6 Total sedation minutes: 9 Complications: none Procedure in detail & Post-procedure care: DESCRIPTION OF PROCEDURE Fluoroscopically guided, contrast-controlled right L3, L4 and L5 medial branch blocks with 0.5cc of 0.5% Marcaine. Following review of allergy and review of potential side effects and complications, including, but not necessarily limited to, infection, allergic reaction, local tissue breakdown, nerve injury, paralysis, stroke and possible , the patient indicated that the patient understood and agreed to proceed. An informed consent document was signed by the patient, witnessed by a nurse, and placed in the patient's chart. After review of previous anaesthesic history and IV conscious sedation the patient was deemed safe to proceed with today?s procedure with IV conscious sedation as ASA class II designation. Safety time-out was performed to confirm patient ID, procedure to be performed and site of procedure. IV sedation was accomplished with a combination of 2mg of Versed was administered by the RN afte r DO order, titrated to patient comfort during the course of the procedure while the patient remained responsive to all verbal commands In the prone position, following sterile prep and drape of the lumbar region, the right L3, L4, L5 anatomical location of the medial branch of the dorsal ramus was identified fluoroscopically. Subsequently an anesthetic skin wheal using 1% lidocaine solution was initiated at each of the anatomical spots. Subsequently then a 22-gauge 3.5-inch spinal needle was atraumatically introduced and advanced under fluoroscopic guidance at each of the corresponding sites at the right L3, L4, L5 MB. After negative aspiration, 0.2 cc of Isovue 200 was injected, confirming placement without vascular or intrathecal uptake. Subsequently, then 0.5cc of 0.5% Marcaine solution was injected at each of the corresponding sites at the right L3, L4 and L5 medial branch locations. The patient tolerated the procedure well without signs or symptoms of complications. The procedure tolerated the procedure well without signs or symptoms of complications prior to transfer to the recovery area continued monitoring without incident. Post-procedure, the patient was monitored initiating provocative activities to measure the amount of relief from block of the facetogenic pain. The patient reported a VAS of 7 prior to the procedure and a post-procedure VAS of 1. It has been a pleasure to assist in the diagnostic and therapeutic care of your patient. POST OP INSTRUCTIONS The patient was provided with a Pain Log to complete over the next several hours and subsequent days prior to the patient's follow up with the ordering physician. If the patient has social media senior associate relief to the solution applied, then they may be a candidate for medial branch rhizotomy. The patient is aware, was provided, once again, with a Pain Log and will follow up with the referring physician for review and clinical correlation.
== END 2020-08-22 13:50 | disposition home or self-care (01) ==
LOC: RAD 12:16
PROVIDERS: PCP Family Medicine; Referring Provider Physical Medicine & Rehabilitation; Visit Provider Physical Medicine & Rehabilitation
DX: M47.816 Spondylosis without myelopathy or radiculopathy, lumbar region (principal); M54.5 Low back pain
CPT/HCPCS: 64493; 64494; J2250; J3010

== ENCOUNTER → 2020-09-03 12:57 | Outpatient (CLI) | payer OTHER, SELFPAY ==
[2020-09-03 14:14] LABS: COVID19 -Nasal RAPID Negative (Negative)
== END ==
PROVIDERS: PCP Family Medicine; Visit Provider Physical Medicine & Rehabilitation
DX: Z20.822 Contact with and (suspected) exposure to COVID-19 (principal)
CPT/HCPCS: 87635; C9803

== ENCOUNTER 2020-09-05 07:29 | Outpatient (CLI) | payer OTHER, SELFPAY ==
[2020-09-05] VITALS (10 sets, daily range): BP systolic 126–150; BP diastolic 62–84; PULSE 63–80; RESP 12–24; TEMP 36.3; O2SAT 92–99
--- NOTE | 2020-09-05 07:54 | DI.RAD.S_ITS ---
PROCEDURE: PAIN C/T INTERLAMINAR INJECT INDICATIONS: SPINAL STENOSIS COMPARISON: [facility], XA, PAIN C/T INTERLAMINAR INJECT, 06/06/2020, 9:21. [facility], XA, PAIN C/T INTERLAMINAR INJECT, 03/09/2018, 9:57. FINDINGS: Fluoroscopic spot filming was performed to verify placement of spinal needles at the C6-C7 dorsal interlaminar level, as labeled on the films. Appropriate location(s) of the needle tip(s) was confirmed by injection of iodinated contrast. IMPRESSION: Interlaminar C6-7 needle tip localization for epidural steroid injection. Dictated by: Josh Griffin M.D. on 09/05/2020 at 10:09 Approved by: Josh Griffin M.D. on 09/05/2020 at 10:10
[2020-09-05] MEDS: fentaNYL 100 MCG/2 ML INJ 50 MCG IV (08:22)
[2020-09-05] MEDS: MIDAZOLAM 5 MG/5 ML VIAL IV (08:22)
[2020-09-05] MEDS: IOPAMIDOL 15 ML VIAL 3 ML INJ (08:38)
[2020-09-05] MEDS: DEXAMETHASONE 10 MG/ML VIAL 30 MG INJ (08:38)
[2020-09-05] MEDS: BUPIVACAINE 0.25% (PF) VIAL 2 ML INJ (08:38)
--- NOTE | 2020-09-05 08:42 | P.PCN_ITS ---
Date/Time/Diagnoses Date of procedure: 09/05/20 Time of procedure: 08:43 Pre-procedure diagnosis: 1. CERVICAL STENOSIS, 2. CERVICAL HNP WITH UPPER EXTREMITY RADICULAR FEATURES Post-procedure diagnosis: same Procedure Notes Procedure: 1. FLUORSCOPICALLY GUIDED CONTRAST CONTROLLED INTERLAMINAR EPIDURAL STEROID INJECTION - C6/7 TL CAYLA Indications: Chinmay is referred by Dr. Oquendo for treatment of Cervical HNP with Upper Extremity Paresthesias. Physician: Kobi Brito Total Fluoroscopy time (seconds): 26 Total sedation minutes: 14 Complications: none Procedure in detail & Post-procedure care: FINDINGS Cervical Stenosis due to disc deterioration and nerve root irritation and nerve root irritation DESCRIPTION OF PROCEDURE Fluoroscopically guided, contrast-controlled C6/7 translaminar epidural steroid injection with conscious sedation. Following review of allergy and review of potential side effects and complications, including, but not necessarily limited to, infection, allergic reaction, local tissue breakdown, temporary as well as permanent nerve injury, stroke, paralysis, and possible , the patient indicated that patient understood and agreed to proceed. An informed consent document was signed by the patient, witnessed by a nurse, and placed in the patient's chart. Additionally, other treatment options including modalities, medications, and physical therapy were reviewed with the patient. After review of previous anaesthesic history and IV conscious sedation the patient was deemed safe to proceed with today?s procedure with IV conscious sedation as ASA class II designation. Safety time-out was performed to confirm patient ID, procedure to be performed and site of procedure. IV sedation was accomplished with a combination of 3mg of Versed and 50mcg of Fentanyl administered by the RN after DO order, titrated to patient comfort during the course of the procedure while the patient remained responsive to all verbal commands. In the prone position, following sterile prep and drape of the cervical region, the C6/7 translaminar space was identified fluoroscopically. The skin was anesthetized via a 25-gauge 1.5-inch needle with 1% lidocaine solution. At this point, a 25-gauge, 2.5-inch short bevel spinal needle was atraumatically introduced and advanced under fluoroscopic guidance into epidural space at the C6/7 translaminar space. Depth was confirmed on lateral view. Radiological data, including multiple fluoroscopic views of the cervical spine, reveal a spinal needle at the C6/7 translaminar space. Lateral views then show placement of the needle in the epidural space. Subsequent views show contrast material flowing superiorly and inferiorly in the epidural space. DSA fluoroscopy with live contrast injection, once again, confirmed no vascular or intrathecal uptake. At this point, using loss of resistance technique with saline and air, the epidural space was entered. Following negative aspiration, injection of a pproximately 1.5 cc of Isovue-200 with live fluoroscopy in the AP view confirmed epidural flow in the epidural space without vascular or intrathecal uptake observed. Subsequently, a test dose of 1 cc of 1% lidocaine solution was injected and patient was observed for two minutes without signs or symptoms of complications, including abdominal pain, shortness of breath, bilateral upper or lower extremity weakness, nausea and vomiting, prior to steroid injection. At this point, 3cc or 30mg of dexamethasone was then injected without incident. The patient tolerated the procedure well without signs or symptoms of complications prior to being transferred to the recovery area for further monitoring, The patient was then transferred to the recovery area where they were observed for an appropriate period of time after the injection. The patient reported a VAS score of 6 prior to the procedure and a post-procedure VAS of 0. POST OP INSTRUCTIONS The patient was provided a Pain Log to continue to record their response to the target-specific procedure prior to follow-up visit with the referring provider. Additionally, specific post-injection care instructions and a contact number to our office were provided if concerns arise regarding possible complications associated with the procedure are suspected.
== END 2020-09-05 09:00 | disposition home or self-care (01) ==
LOC: RAD 07:33
PROVIDERS: PCP Family Medicine; Referring Provider Physical Medicine & Rehabilitation; Visit Provider Physical Medicine & Rehabilitation
DX: M48.02 Spinal stenosis, cervical region (principal); M50.123 Cervical disc disorder at C6-C7 level with radiculopathy
CPT/HCPCS: 62321; 99152; J1100; J2250; J3010

== ENCOUNTER → 2020-10-16 07:34 | Outpatient (CLI) | payer OTHER, SELFPAY ==
[2020-10-16 08:56] LABS: COVID19 -Nasal RAPID Negative (Negative)
== END ==
PROVIDERS: PCP Family Medicine; Visit Provider Physical Medicine & Rehabilitation
DX: Z20.822 Contact with and (suspected) exposure to COVID-19 (principal); M47.816 Spondylosis without myelopathy or radiculopathy, lumbar region; M96.1 Postlaminectomy syndrome, not elsewhere classified; Z98.890 Other specified postprocedural states
CPT/HCPCS: 87635; 99214

== ENCOUNTER 2020-10-17 07:30 | Outpatient (CLI) | payer OTHER, SELFPAY ==
[2020-10-17] VITALS (10 sets, daily range): BP systolic 113–166; BP diastolic 58–93; PULSE 61–78; RESP 12–18; TEMP 36.4; O2SAT 94–100
--- NOTE | 2020-10-17 07:32 | DI.RAD.S_ITS ---
PROCEDURE: PAIN L/S MED/LAT N RFA INDICATIONS: SPONDYLOSIS COMPARISON: [facility], , PAIN L/S MED/LAT N RFA, 02/15/2020, 7:40. FINDINGS: Fluoroscopic spot filming was performed to verify placement of spinal needles on the left at the L3, L4, and L5 levels, as labeled on the films. IMPRESSION: Intraprocedural examination within normal limits. Dictated by: Devonte Jimenez M.D. on 10/17/2020 at 10:48 Approved by: Devonte Jimenez M.D. on 10/17/2020 at 10:49
[2020-10-17] MEDS: fentaNYL 100 MCG/2 ML INJ 50 MCG IV ×2 (08:21→08:35)
[2020-10-17] MEDS: MIDAZOLAM 5 MG/5 ML VIAL IV ×2 (08:26)
[2020-10-17] MEDS: BUPIVACAINE 0.5% (PF) VIAL 5 ML INJ (08:29)
--- NOTE | 2020-10-17 08:55 | P.PCN_ITS ---
Date/Time/Diagnoses Date of procedure: 10/17/20 Time of procedure: 08:56 Pre-procedure diagnosis: 1. RECALCITRANT FACET ARTHROPATHY Post-procedure diagnosis: same Procedure Notes Procedure: 1. RIGHT L3, L4 AND L5 MEDIAL BRANCH RADIOFREQUENCY NEUROTOMY Indications: Chinmay is referred by Dr. Nicholas for treatment of facet arthropathy. Physician: Kobi Brito Total Fluoroscopy time (seconds): 21 Total sedation minutes: 31 Complications: none Procedure in detail & Post-procedure care: DESCRIPTION OF PROCEDURE Right L2, L3 and L4 medial branch radio-frequency neurotomy The patient is well known to this clinic having undergone previous facet injections with good but temporary relief. The patient has experienced appropriate, concordant relief with previous facet and median branch blocks but the patient's pain has been recalcitrant to further conservative measures. Therefore, based upon the patient's relief and persistent symptoms, the patient is considered an appropriate candidate for facet rhizotomy. All of the patient's questions regarding the risks versus benefits of the procedure, including, but not limited to, bleeding, infection, temporary as well as lasting nerve injury, paralysis, stroke, and , as well treatment alternatives were answered to satisfaction. After obtaining informed consent, denial of pertinent drug allergies, as well as being made aware of the potential risks of bleeding, infection, spinal cord trauma, paralysis, temporary and permanent nerve damage, seizure, stroke, and possible , the patient was brought to the fluoroscopy suite and positioned prone on the fluoroscopy table. The lumbar region was prepped with Betadine and covered with a fenestrated drape in the usual sterile fashion. Appropriate monitors applied including pulse oximeter, pulse, and blood pressure for regular monitoring throughout the procedure. After review of previous anaesthesic history and IV conscious sedation the patient was deemed safe to proceed with today?s procedure with IV conscious sedation as ASA class II designation. Safety time-out was performed to confirm patient ID, procedure to be performed and site of procedure. IV sedation was accomplished with a combination of 8mg of Versed and 100mcg of Fentanyl administered by the RN after DO order, titrated to patient comfort during the course of the procedure while the patient remained responsive to all verbal commands. After local infiltration using 1% lidocaine, under fluoroscopic guidance, a 10- cm RF insulated needle with a 10-mm active tip was positioned parallel to the junction of the right the superior articulating process where the L3 medial branch resides. Needle placement was confirmed with sensory stimulation at 50 Hz, with motor stimulation of .5v on the right which produced local stimulation without radicular component. The stimulation was then increased to 2v with, once again, only local multifidus stimulation without radicular component. This was then followed by two discreet lesions performed at 80 degrees Celsius for 90 seconds each. The needle was then removed and the identical procedure was performed along the length of the right L4 medial branch with motor stimulation at .7v on the right. The identical procedure was once again performed along the length of the right L5 and medial branch with motor stimulation of .5v on the right. The patient tolerated the procedure well without signs or symptoms of complications prior to transfer to the recovery area continued monitoring without incident. The patient was then transferred to the recovery area where they were observed for an appropriate period of time after the injection. The patient reported a VAS score of 7 prior to the procedure and a post-procedure VAS of 1. POST OP INSTRUCTIONS The patient was provided a Pain Log to continue to record the patient's response to the target-specific procedure prior to the patient's follow-up visit with the referring physician. Additionally, specific post-injection care instructions and a contact number to our office were provided if concerns arise regarding possible complications associated with the procedure are suspected.
== END 2020-10-17 09:12 | disposition home or self-care (01) ==
LOC: RAD 07:31
PROVIDERS: PCP Family Medicine; Referring Provider Physical Medicine & Rehabilitation; Visit Provider Physical Medicine & Rehabilitation
DX: M47.816 Spondylosis without myelopathy or radiculopathy, lumbar region (principal)
CPT/HCPCS: 64635; 64636; 99152; 99153; J2250; J3010

== ENCOUNTER → 2021-05-16 09:13 | Outpatient (CLI) | payer OTHER, SELFPAY ==
[2021-05-16 12:14] LABS: COVID19 -Nasal RAPID Negative (Negative)
== END ==
PROVIDERS: PCP Family Medicine; Visit Provider Physician Assistant
DX: Z20.822 Contact with and (suspected) exposure to COVID-19 (principal)
CPT/HCPCS: 87635

== ENCOUNTER 2021-05-19 08:32 | Inpatient (IN) | payer OTHER, SELFPAY ==
[2021-05-12 13:50] VITALS: BMI 33.9
[2021-05-19] VITALS (16 sets, daily range): BP systolic 133–171; BP diastolic 84–116; PULSE 85–131; RESP 14–18; TEMP 36.4–37.2; O2SAT 91–98; BMI 33.9
--- NOTE | 2021-05-19 08:43 | DI.RAD.S_ITS ---
PROCEDURE: XR SHOULDER RT MIN 2V INDICATIONS: postop prosthesis placement TECHNIQUE: 2 views of the shoulder were acquired. COMPARISON: January 25, 2021. FINDINGS: Bones: No fractures or dislocations. Interval placement of a right shoulder arthroplasty without evidence of hardware compromise. No suspicious bony lesions. Visualized ribs appear intact. Moderate to advanced osteophytosis about the AC joint. Soft tissues: Suggestion of subcutaneous gas about the proximal humerus. IMPRESSION: No significant abnormality. Dictated by: Won Dutton M.D. on 05/19/2021 at 14:03 Approved by: Won Dutton M.D. on 05/19/2021 at 14:06
[2021-05-19] MEDS: ACETAMINOPHEN 325 MG TABLET 975 MG PO (09:09)
[2021-05-19] MEDS: CELECOXIB 200 MG CAPSULE PO (09:10)
[2021-05-19] MEDS: LACTATED RINGERS 1,000 ML 42 ML IV ×2 (09:20→12:03)
--- NOTE | 2021-05-19 09:33 | PM.PREOP ---
Pre-operative Note COVID-19 COVID-19 status: Negative Result date/Date tested (Pos, Neg/Pending): 05/16/21 Interval Note History & Physical reviewed/Exam performed by Physician: Yes Changes to H&P: No
--- NOTE | 2021-05-19 09:41 | PM.OP.1 ---
Operative Date/Time/Diagnoses Date of procedure: 05/19/21 Time of procedure: 12:30 Pre-op diagnosis: Right shoulder irreparable rotator cuff tear Post-op diagnosis: same Procedure & Clinicians Procedure: Right reverse total shoulder replacement Same procedure as scheduled: Yes Indications: The patient is had chronic right shoulder pain unresponsive to nonoperative therapies. Radiographic studies have revealed changes consistent with a massive rotator cuff tear and arthritis. They have elected to proceed with reverse total shoulder replacement after discussion of the risks benefits and alternatives. Risks discussed included but were not limited to: Failure to improve, instability, infection, nerve damage, deep venous thrombosis, pulmonary embolism, stroke, coma, myocardial infarction and . Surgeon: Jluis Werner Melt House Supervisor: Marlee Lemus Click Yes if Unassisted: No Anesthesia Type: General, Peripheral nerve block and Local Operative Notes Findings: Complete tear of the entire subscapularis, supraspinatus and infraspinatus with some remaining teres minor. Biceps was absent. Closure Type: primary Specimen(s): none sent Prosthetic devices, grafts, tissues, transplants, or devices: Implants used in this procedure manufactured by the [employer] and included a RSP reverse total shoulder system with a 30 mm screw length glenoid base plate, 4 surrounding locking bolts 5 mm in diameter and 38 mm, 38 mm, 30 mm and 18 mm in length. A 36 neutral glenosphere with retaining screw was applied. A size 12 humeral stem was used with a standard size cup and a 36 mm liner. Applied: implant(s) Estimated Blood Loss (mL): 200 Blood products transfused: none Procedure in detail: The patient was seen in the preoperative area where they identified the right shoulder as the operative site and this was marked with my initials. They received preoperative antibiotics and underwent the induction of an interscalene block. They were taken to the operating room and placed on the operating room table in a supine position with the underwent the induction of a general anesthetic. There were then repositioned in the ?beach chair? position using a dedicated positioner. All pressure points were well padded. The knees were slightly bent to prevent tension on the sciatic nerves. The right arm was prepared from the fingertips to the base of the neck with ChloraPrep in the usual fashion and draped through sterile drapes. An approximately 15 cm incision was created starting at the clavicle just above the coracoid and going to the deltoid insertion. The deltopectoral interval was used to access the shoulder taking the vein to the medial side. The vein was unfortunately damaged by retraction and ligated later in the case. The upper 1 cm of the pectoralis major was released. The biceps tendon was missing. There was no subscapularis tendon on the lesser tuberosity, just scar tissue, this was released. The shoulder was dislocated and a proximal humeral osteotomy performed using an extramedullary guide. A proximal humeral protector was then placed. Retractors were placed access the glenoid. The labrum and other soft tissues surrounding the glenoid were carefully released with care being taken to protect the axillary nerve. The nerve was encased in scar medially and could not be palpated. The guide was used to drill the guide hole in the center of the inferior glenoid. The tap was placed and used as a guide for the reamer. The tap was then removed and the glenoid base plate inserted. The peripheral locking screws were then placed through the appropriate guide. A trial glenoid head was applied. We then turned our attention to the humerus. The proximal humeral protector was removed. Cylindrical reamers were used to size the canal. Broaching was then performed beginning with a small broach and working up until a line to line fit with the reamer was obtained. The guide for the proximal metaphyseal reamer was then applied and the metaphysis was reamed appropriately. The trial metaphyseal portion of the body was then applied to the broach. Trial reductions were performed and the size of the glenoid head and the cup were optimized. Stability was checked in maximal internal and external rotation and range of motion was checked to allow access to the top of the head, internal rotation to an excess of 50? in the ?scarecrow position? and the ability to reach the groin. The appropriate final prosthetic components were then opened. The glenoid head was impacted into position and checked for rotational and axial stability before placing the set screw. The humeral prosthetic was then impacted into position. The humeral cup was placed. The joint was relocated and irrigated. The deltopectoral interval was reapproximated with 0 Vicryl. Subcutaneous layer was closed with interrupted 3-0 Vicryl and skin with a running 3 0 V lock suture and Dermabond. Subcutaneous tissues were then infiltrated with 0.5% Marcaine for postoperative pain control. An Aquacel Ag dressing was applied and the patient's arm was placed in a sling. The patient was then transferred to the recovery room in good condition having tolerated the procedure well. Complications: none Post-operative Condition: stable Disposition: PACU Plan for aftercare: The patient will be allowed to do pendulum exercises and use his hand in front of his body below shoulder level to lift 1-2 lb postoperatively. He will be discharged once he is stable for his home environment.
--- NOTE | 2021-05-19 10:22 | SUR.PREOP ---
Block start time 1115[] . Monitoring initiated and maintained throughout procedure. Oxygen and medications given per anesthesiologist instructions. Patient remained stable throughout procedure, no adverse reactions noted. Block end time [1119].
[2021-05-19] MEDS: TRANEXAMIC ACID 1,000 MG VIAL 1000 MG INJ ×2 (10:25→12:01)
[2021-05-19] MEDS: CEFAZOLIN 1 GM VIAL 2 GM IV (10:30)
--- NOTE | 2021-05-19 10:56 | SUR.OPER ---
Beach chair with Schlein shoulder positioner. Lower body on padded OR bed. Head in foam padded head cradle, secured with straps. Non-operative arm secured <90 degrees abduction. Pillow under knees. Safety belt at thigh. Cloth tape over blanket over lower legs.
[2021-05-19] MEDS: BUPIVACAINE 0.25% (PF) 30 ML, EPINEPHrine 0.3 MG INJ (11:04)
--- NOTE | 2021-05-19 12:21 | P.PCN_ITS ---
Procedures Date/Time Date of procedure: 05/19/21 Time of procedure: 10:15 Nerve Block Time out performed: Yes Local anesthetic used: other (15mL 0.5opivacaine, 5mL 2* idocaine) Location of anesthetic used: interscalene Amount of anesthesia used (mL): 20 Nerve blocks: brachial plexus (interscalene) Procedure successful: Yes Patient tolerated procedure: well Complications: none Additional comments: Brachial plexus nerve block for post operative pain management. Risks and benefits discussed, including bleeding, infection, intravascular injection, nerve damage, block failure. Standard ASA monitors, NC O2. Pt supine. Chloroprep site preparation, sterile technique. Brachial plexus identified with US guidance, traced from supraclavicular to interscalene. 1mL 2% lidocaine skin wheal. 22g x 50mm Pajunk advanced with in-plane US guidance to brachial plexus. Negative aspiration. LA injected with intermittent negative aspiration. Good LA spread noted on US. No pain, no paraesthesia. Pt tolerated procedure well. Vital signs stable.
[2021-05-19] MEDS: OXYCODONE IR 5 MG TABLET 10 MG PO (12:56)
--- NOTE | 2021-05-19 13:36 | SUR.PHASEI ---
report called to Roslyn Pierson on floor
[2021-05-19] MEDS: LACTATED RINGERS 1,000 ML 100 ML IV (14:12)
[2021-05-19] MEDS: OXYCODONE IR 5 MG TABLET 15 MG PO ×2 (16:22→20:12)
[2021-05-19] MEDS: ACETAMINOPHEN 325 MG TABLET 650 MG PO ×2 (16:23→20:11)
--- NOTE | 2021-05-19 18:06 | PT.IIE ---
Current Diagnoses Complete rotator cuff tear or rupture of right shoulder, not specified as traumatic (05/19/21) Surgery Performed Operation Date: 05/19/21 10:15 Actual Procedures p Total Shoulder Arthroplasty - Reverse(Right) - Jluis Werner MD Medical History (Last Updated 05/12/21 @ 14:16 by Anisha Dia RN) Arthritis Facet arthropathy, lumbar HLD (hyperlipidemia) Physical Therapy Inpatient Evaluation/Re-Eval M1 PT/OT-IP Prior Functional Status Start: 05/19/21 16:54 Freq: NEEDED Status: Active Protocol: Document 05/19/21 17:55 [facility] (Rec: 05/19/21 18:06 [facility] [id number]) Medical Review Prior Functional Status Medical History Reviewed Yes Diet/Fluid Consistency Regular Communication WNL Mobility and Gait indep w/o AD Activities of Daily Living and IADL's indep Social History Household Members spouse Living Arrangements House Number of Floors (Floors) One Floor Number of Stairs To Enter/Railing? no JOLLY Home Environment Standard Height Toilet,Tub/ Shower Home Equipment Front Wheel Walker,Straight Cane,Hand Held Shower Employment Status Retired Additional Social History Comment will be with him for a couple days then return to work M2 PT-IP Current Condition Start: 05/19/21 16:54 Freq: NEEDED Status: Active Protocol: Document 05/19/21 17:55 [facility] (Rec: 05/19/21 18:06 [facility] [id number]) Physical Therapy Current Condition Current Condition Evaluation Date 05/19/21 Treatment Diagnosis R reverse TSA M3 PT-IP Subjective Start: 05/19/21 16:54 Freq: NEEDED Status: Active Protocol: Document 05/19/21 17:55 [facility] (Rec: 05/19/21 18:06 [facility] [id number]) Subjective Physical Therapy Visit Type Type Initial Evaluation Visit Start Time 15:06 Visit Stop Time 15:53 Total Visit Minutes 27 Number of SECURITY CHECKER Visits 0 Physical Therapy Visit Comments Patient Goals Plans to go home tomorrow Therapy Pain Assessment Pain When Pain Assessed At Rest Location Right Shoulder Intensity 6 Scale Used Numeric (0 - 10) Pain Management Techniques Apply Cold M4 PT-IP Mobility and Gait Start: 05/19/21 16:54 Freq: NEEDED Status: Active Protocol: Document 05/19/21 17:55 [facility] (Rec: 05/19/21 18:06 [facility] [id number]) PT-Bed Mobility Assessment Scooting Scooting to Edge of Bed Independent PT-Transfer Assessment Sit to and From Stand Sit to and from Stand Standby Assistance Equipment Orthotic/Prosthetic Devices or Brace: Yes Comments Mobility Comments pt sitting EOB upon PT entering. sit to stand SBA and pt stood for extended time and turned for PT so PT could set up his sling. He had multiple straps and abd sling. Once set up, pt amb in roomm 50ft SBA. Pt sat EOB SBA and scooted back indep. Edu to and pt while pt seated EOB. Pt left w/call light in reach. Gait Assessment Gait Gait Assistance Required: Standby Assistance Distance (Feet) 50 Assistive Devices Assistive Device None Gait Deviations General Gait Pattern Within Normal Limits PT-Balance Assessment Sitting Balance and Reactions Static Sitting Balance Ability Normal Dynamic Sitting Balance Ability Normal Standing Balance and Reactions Static Standing Balance Ability Normal Dynamic Standing Balance Ability Normal M5 PT-IP Objective Assessments Start: 05/19/21 16:54 Freq: NEEDED Status: Active Protocol: Document 05/19/21 17:55 [facility] (Rec: 05/19/21 18:06 [facility] [id number]) Orientation Orientation/Cognition Level of Alertness Alert Language Function Ability No Deficits Noted Safety Awareness Understands Safety Issues Memory Description No Deficits Noted Gross Range of Motion Upper Extremity ROM Assessment Right Impaired Strength Upper Extremity Strength Assessment Right Impaired Lower Extremity Strength Assessment Within Functional Limits M6 PT-IP Treatment Start: 05/19/21 16:54 Freq: NEEDED Status: Active Protocol: Document 05/19/21 17:55 [facility] (Rec: 05/19/21 18:06 [facility] [id number]) Physical Therapy Treatment Education Education Provided Precautions,Weight Bearing Status,Post-Op Packet,Safety Equipment Issued Equipment Type and Company edu how to don/doff shirts and washing under arms. Edu to and pt how to set up sling and sling set up for pt. Edu to talk to about setting up OP PT. edu pendulums but not practiced today. M7 PT-IP Assessment and Plan Start: 05/19/21 16:54 Freq: NEEDED Status: Active Protocol: Document 05/19/21 17:55 [facility] (Rec: 05/19/21 18:06 [facility] [id number]) PT Summary Assessment and Plan Potential Rehabilitation Potential Excellent Status of Condition at Evaluation Stable Summary Impairments Pain,ROM,Strength,Transfers, Gait,Activity Tolerance Assessment Summary Pt presents s/p R TSA reverse 05/19 with already 6/10 pain but pt doing well iwth overall mobility. He was able to amb and transfer SBA and pt's was present during session for all edu. Pt is motivated to work w/PT in order to recover and is likely to progress well w/return home w/ his and OP PT. Significant time spent for education and sling set up today and pt understands sling but will requrie practice for donning and doffing. Goals Bed Mobility Goal Independent Transfer Goal Independent Gait Goal Independent Gait Distance 150ft Days to Meet Goals 3 Frequency of Treatment Frequency Of Treatment Twice a Day Treatment Plan Physical Therapy Treatment Plan Bed Mobility Training,Transfer Training,Gait Training, Therapeutic Exercise,Balance Retraining,Post Op Education, Discharge Planning, Neuromuscular Re-ed,Manual Therapy Precautions Shoulder Precautions Sling,No External Rotation,No Abduction,Pendulums Brace The patient will be allowed to do pendulum exercises and use his hand in front of his body below shoulder level to lift 1-2 lb postoperatively per op report Weight Bearing Status Weight Bearing Status Non-Weight Bearing Allowed Weight Bearing Amount (enter % RUE or #) (%) Recommendations To Nursing Amount of Assist Needed Standby Assistance Discharge Recommendations PT Discharge Recommendations Home,Outpatient PT Transportation Needs at Discharge Private Vehicle
[2021-05-19] MEDS: HYDROMORPHONE 0.5 MG INJ 0.2 MG IV (18:57)
--- NOTE | 2021-05-19 19:33 | PC.NURSE ---
VSS, aquacel in place to right shoulder remains CDI. Tolerating food and drinks. Using urinal without difficulty. Call light within reach.
[2021-05-19] MEDS: PREGABALIN 50 MG CAPSULE PO (20:13)
[2021-05-19] MEDS: ASPIRIN EC 81 MG TABLET PO (20:13)
[2021-05-19] MEDS: THEOPHYLLINE ER 300 MG PO (21:48)
[2021-05-19] MEDS: IBUPROFEN 400 MG TABLET 800 MG PO (21:48)
[2021-05-19] MEDS: HYDROMORPHONE 2 MG TABLET PO (23:40)
[2021-05-19] MEDS: TRAZODONE 50 MG TABLET 100 MG PO (23:40)
[2021-05-20] VITALS: BP 124/75; PULSE 92; RESP 18; TEMP 36.5; O2SAT 93
[2021-05-20] MEDS: LACTATED RINGERS 1,000 ML 100 ML IV (00:31)
--- NOTE | 2021-05-20 00:48 | PC.NURSE ---
SHIFT Report received, care assumed 1899. Pt is A&Ox4. VSS. Reports pain 6/10, so far unrelieved by measures such as meds, ice, immobilization. His goal is a 3, but he does report pain improved compared to pre-op. Wearing arm sling to RUE. Aquacell dressing CDI. +CMS. Able to get OOB independently, using urinal or bathroom.
[2021-05-20] MEDS: HYDROMORPHONE 2 MG TABLET PO (03:14)
[2021-05-20 03:28] VITALS: BP 138/85; PULSE 85; RESP 18; TEMP 36.1; O2SAT 96
--- NOTE | 2021-05-20 07:39 | PM.DS.1 ---
History of Present Illness History of Present Illness Date Patient Seen: 05/20/21 Time Patient Seen: 07:39 Chief complaint: Right Total Shoulder Arthroplasty *OPB* Narrative: The history and physical is contained in the chart and a previously completed note. Please refer to that note for this information. Discharge Providers Provider Date of admission: 05/19/21 08:32 Discharge Date: 05/20/21 Primary care physician: Michael Oquendo MD Consults: 05/19/21 13:56 Consult to Discharge Planning Routine Comment: Consult to Physical Therapy Evaluate & Treat Comment: Physician Instructions: pendulums, 90 FF, 0 ER, 0 Abd, IR to body PROM Discharge provider: Jluis Werner MD Summary Hospital Course Discharge Diagnosis: Right shoulder massive irreparable rotator cuff tear Hospital Course: The patient was admitted to the hospital and taken directly to the operating room on May 19, 2021. He underwent a right reverse total shoulder replacement without complications. On postoperative day 1 he was stable and ready for discharge home. Status at Discharge Cognitive/behavioral status at discharge: at baseline, oriented Functional status at discharge: independent ambulation Overall status at discharge: patient is progressing back to baseline Time Spent with Patient Time spent: Less than 30 minutes Exam Vital Signs (past 8 hours): - 05/20/21 00:00 05/20/21 03:28 Temperature 97.7 F 97.0 F L Pulse Rate 92 H 85 Respiratory Rate 18 18 Blood Pressure 124/75 138/85 Pulse Oximetry 93 96 Fraction of Inspired Oxygen 24 Oxygen Delivery Method Room Air Oxygen Flow Rate 0 Narrative Exam Narrative: Right shoulder wound is dressed with no drainage on the bandage. Light touch is intact in the radial, ulnar, median, muscular cutaneous and axillary nerve distribution. He can extend his thumb, abduct his thumb, abduct his fingers and can fire his biceps and deltoid. Objective Labs Result Diagrams: 05/20/21 04:46 PFSH Medical History (Updated 05/12/21 @ 14:16 by Anisha Dia RN) Arthritis Facet arthropathy, lumbar HLD (hyperlipidemia) Surgical History (Updated 05/12/21 @ 14:17 by Anisha Dia RN) H/O carpal tunnel repair H/O cervical spine surgery H/O lumbosacral spine surgery History of carpal tunnel surgery of left wrist History of carpal tunnel surgery of right wrist History of total left knee replacement History of vasectomy Hx of arthroscopy of left knee Hx of arthroscopy of right knee Hx of elbow surgery Hx of shoulder surgery Hx of shoulder surgery S/P left unicompartmental knee replacement S/P right unicompartmental knee replacement Status post epidural steroid injection Family History Unknown No pertinent family history Social History household members: spouse Smoking Status: Never smoker alcohol intake: former Discharge Assessment & Plan Assessment and Plan Assessment: Stable postoperative day 1 status post right total shoulder replacement. Plan of Treatment: Discharged home with follow-up in the office in 10-14 days. He may use his arm below shoulder level in front of his body to lift 1-2 lb. Prescriptions for oxycodone and hydroxyzine have been called into his pharmacy. He has also been instructed in the use of Tylenol for pain control and low-dose aspirin for DVT prophylaxis. Discharge Plan Discharge Plan Patient Disposition: Home Discharge orders & Medications Prescriptions: New acetaminophen 325 mg Tablet 650 mg PO TID 30 Days Qty: 180 0RF aspirin 81 mg Tablet,Delayed Release (Dr/Ec) 81 mg PO BID Qty: 42 0RF oxycodone 5 mg Tablet 5 mg PO Q4HR PRN (Reason: Pain, Moderate (4-6)) Qty: 60 0RF hydroxyzine pamoate 25 mg Capsule 25 mg PO Q6HR Qty: 30 0RF Continued duloxetine [Cymbalta] 60 mg capsule,delayed release(DR/EC) 60 mg PO DAILY Qty: 30 2RF albuterol sulfate [Ventolin HFA] 90 mcg/actuation HFA aerosol inhaler 1 puff INHALATION Q6H PRN (Reason: asthma) 0RF meloxicam 15 mg tablet 15 mg PO DAILY 0RF theophylline 300 mg capsule,extended release 24hr 300 mg PO BID 0RF trazodone 150 mg tablet 100 mg PO BEDTIME PRN (Reason: Sleep) 0RF lisinopril 40 mg tablet 40 mg PO DAILY 0RF pregabalin 50 mg capsule 50 mg PO BID Qty: 60 3RF diphenhydramine-acetaminophen [Tylenol PM Extra Strength] 25-500 mg tablet 2 tab PO BEDTIME PRN (Reason: Sleep) 0RF Discontinued ketorolac 15.75 mg/spray [place],Non-Aerosol 15.75 mg INTRANASAL Q6-8H PRN (Reason: Pain) 0RF oxycodone 5 mg capsule 7.5 mg PO QID 0RF Follow up/Referrals: Michael Oquendo MD [Primary Care Provider] - Jluis Werner MD [Physician] - 2 Weeks Discharge Health Status Multidrug resistant organism: No MDRO Diet/Activity/Treatments Diet: Diet as Tolerated and Regular Activity: You may use your right arm in front of your body below shoulder level to lift 1-2 lb. Cold/Heat Therapy: Apply ice to your right shoulder for 15 minutes every hour as needed for pain control. Skin/Wound/Dressing Care Report to your healthcare provider any signs of infection, such as:: chills, fever, night sweats, increased pain, unusual drainage and unusual redness Dressing: You may shower with the dressing in place. Leave the dressing in place until your postoperative follow-up. If the central strip of the dressing becomes saturated with either water or blood, please call the office. Visit Report/Discharge Packet Instructions: DI for Prescription Opioid Use, DI for Shoulder Replacement Stand Alone Forms: Surgery Discharge Discharge Data Primary Care Provider: Michael Oquendo Quality VTE Deep Vein Thrombosis/Pulmonary Embolism Present on Admission: No
[2021-05-20 07:45] LABS: Hematocrit 35.9 % (41-53); Hemoglobin 12.2 g/dL (13.5-17.5)
[2021-05-20 09:04] VITALS: O2SAT 96
[2021-05-20] MEDS: THEOPHYLLINE ER 300 MG PO (09:17)
[2021-05-20] MEDS: PREGABALIN 50 MG CAPSULE PO (09:17)
[2021-05-20] MEDS: DOCUSATE 100 MG CAPSULE PO (09:17)
[2021-05-20] MEDS: OXYCODONE IR 5 MG TABLET PO ×2 (09:17→13:02)
[2021-05-20] MEDS: ACETAMINOPHEN 325 MG TABLET 650 MG PO (09:18)
[2021-05-20] MEDS: hydrOXYzine pamoate 25 MG CAPSULE PO (09:18)
[2021-05-20] MEDS: DULOXETINE 30 MG CAPSULE 60 MG PO (09:18)
[2021-05-20 09:19] VITALS: BP 149/100; PULSE 100
[2021-05-20] MEDS: lisinopriL 20 MG TABLET 40 MG PO (09:19)
[2021-05-20] MEDS: ASPIRIN EC 81 MG TABLET PO (09:19)
--- NOTE | 2021-05-20 09:33 | PT.IPTN ---
Current Diagnoses Complete rotator cuff tear or rupture of right shoulder, not specified as traumatic (05/19/21) Surgery Performed Operation Date: 05/19/21 10:15 Actual Procedures p Total Shoulder Arthroplasty - Reverse(Right) - Jluis Werner MD Physical Therapy Treatment Note M2 PT-IP Current Condition Start: 05/19/21 16:54 Freq: NEEDED Status: Active Protocol: Document 05/19/21 17:55 [facility] (Rec: 05/19/21 18:06 [facility] [id number]) Physical Therapy Current Condition Current Condition Evaluation Date 05/19/21 Treatment Diagnosis R reverse TSA M3 PT-IP Subjective Start: 05/19/21 16:54 Freq: NEEDED Status: Active Protocol: Document 05/20/21 09:20 [facility] (Rec: 05/20/21 11:10 [facility] [id number]) Subjective Physical Therapy Visit Type Type Treatment Note Visit Start Time 09:20 Visit Stop Time 09:33 Total Visit Minutes 13 Number of SCRAP METAL COLLECTOR Visits 1 Physical Therapy Visit Comments Patient Comments Pt eager to go home M4 PT-IP Mobility and Gait Start: 05/19/21 16:54 Freq: NEEDED Status: Active Protocol: Document 05/20/21 09:20 [facility] (Rec: 05/20/21 11:10 [facility] [id number]) PT-Bed Mobility Assessment Supine to Sit Supine to Sit Independent Scooting Scooting to Edge of Bed Independent PT-Transfer Assessment Sit to and From Stand Sit to and from Stand Standby Assistance Equipment Transfer Assistive Device None,Gait Belt Orthotic/Prosthetic Devices or Brace: Yes Transfers Transfer Destination Bed Transfer Technique Pt ambulated w/o AD Transfer Ability Level of Assist Standby Assistance Comments Mobility Comments Pt in bed upon arrival from therapy w/ RN in room. Reveiwed donning and doffing sling and finger, wrist, and elbow flexion and extension and shoulder pendulums, pt tolerated all well. Pt offered that he has had several shoulder surgeries previously and is familiar with sling and exercises. Pt able to don tank top safely. Pt ambulated around room safely w/o AD, no JOLLY. Pt states he is ready to go home w/ support. Gait Assessment Gait Gait Assistance Required: Standby Assistance Distance (Feet) 30 Assistive Devices Assistive Device None Gait Deviations General Gait Pattern Within Normal Limits Comments Gait Comments Pt ambulated safely w/o AD. PT-Balance Assessment Sitting Balance and Reactions Static Sitting Balance Ability Normal Dynamic Sitting Balance Ability Normal Standing Balance and Reactions Static Standing Balance Ability Normal Dynamic Standing Balance Ability Normal M5 PT-IP Objective Assessments Start: 05/19/21 16:54 Freq: NEEDED Status: Active Protocol: Document 05/19/21 17:55 [facility] (Rec: 05/19/21 18:06 [facility] [id number]) Orientation Orientation/Cognition Level of Alertness Alert Language Function Ability No Deficits Noted Safety Awareness Understands Safety Issues Memory Description No Deficits Noted Gross Range of Motion Upper Extremity ROM Assessment Right Impaired Strength Upper Extremity Strength Assessment Right Impaired Lower Extremity Strength Assessment Within Functional Limits M6 PT-IP Treatment Start: 05/19/21 16:54 Freq: NEEDED Status: Active Protocol: Document 05/20/21 09:20 [facility] (Rec: 05/20/21 11:10 [facility] [id number]) Physical Therapy Treatment Exercises Exercises Shoulder Pendulums,Elbow Flexion/Extension,Wrist ROM, Hand ROM Education Education Provided Precautions,Weight Bearing Status,Post-Op Packet,Safety Other Treatments Other Treatment Performed Reveiwed sling donning/doffing and exercises and discussed safety at home. M7 PT-IP Assessment and Plan Start: 05/19/21 16:54 Freq: NEEDED Status: Active Protocol: Document 05/20/21 09:20 [facility] (Rec: 05/20/21 11:10 [facility] [id number]) PT Summary Assessment and Plan Potential Rehabilitation Potential Excellent Status of Condition at Evaluation Stable Summary Impairments Pain,ROM,Strength,Transfers, Gait,Activity Tolerance Assessment Summary Pt I to SBA for all bed mobility, transfers, and ambulation. Able to safely don and doff sling and complete appropriate exercises including finger, wrist, and elbow flexion and extension as well as shoulder pendulumes. Pt will benefit from outpatient rehab to improve shoulder strength and ROM when appropriate. Pt safe to return home when medically stable. Goals Bed Mobility Goal Independent Transfer Goal Independent Gait Goal Independent Gait Distance 150ft Days to Meet Goals 3 Frequency of Treatment Frequency Of Treatment Twice a Day Treatment Plan Physical Therapy Treatment Plan Bed Mobility Training,Transfer Training,Gait Training, Therapeutic Exercise,Balance Retraining,Post Op Education, Discharge Planning, Neuromuscular Re-ed,Manual Therapy Precautions Shoulder Precautions Sling,No External Rotation,No Abduction,Pendulums Brace The patient will be allowed to do pendulum exercises and use his hand in front of his body below shoulder level to lift 1-2 lb postoperatively per op report Weight Bearing Status Weight Bearing Status Non-Weight Bearing Allowed Weight Bearing Amount (enter % RUE or #) (%) Recommendations To Nursing Amount of Assist Needed Standby Assistance Discharge Recommendations PT Discharge Recommendations Home,Outpatient PT Transportation Needs at Discharge Private Vehicle
--- NOTE | 2021-05-20 13:37 | PC.NURSE ---
Reviewed discharge instructions with patient and he states understandign and is ready for discharge. Aquacel dressing remains CDI. Patient picked up by , escorted out via wheelchair with all belongings. Patient has follow up appointment scheduled. Instructed to call surgeon;s office with questions or concerns. Prescriptions were sent electronically.
--- NOTE | 2021-05-20 14:44 | CM.DANOTE ---
DCP/Assessment: Reviewed chart. Patient is a 60yr old male admitted to [facility] for right elective TSA done on 05-19-[address] Werner. PCP is Dr. Oquendo. Primary payor is 1)Herminio Singh. Attempted to meet with patient this afternoon but patient has already discharged from [facility].. with no d/c planning needs. P: Home today. FANNY Clay Discharge Planning/Care Management CM Discharge Assessment Start: 05/20/21 14:41 Freq: Status: Discharge Protocol: Document 05/20/21 14:41 [facility] (Rec: 05/20/21 14:44 [facility] [id number]) Discharge Planning Assessment Assigned Cobbler Mckay FANNY Clay Advance Directives? No History Provided By Medical Record Prior Living Arrangements House Household Members spouse Type of transporation used prior to Drives own vehicle admit Independent with ADL's Yes Is patient alert and oriented? Yes Caregiver for Another No Barriers to Discharge No Discharge Plan Home Transportation Arrangement Family to provide transport. Referrals Initiated None needed Review Status In Process Next Review Type Continued Stay Review Pre-Anesthesia Assessment Start: 05/12/21 13:50 Freq: Status: Discharge Protocol: Document 05/12/21 13:50 [facility] (Rec: 05/12/21 14:35 [facility] [id number]) Pre-Anesthesia Assessment Patient Information Reviewed Via Phone Assessment Assessment Completed With Patient Diagnostic Results BMP/CMP,CBC Comment Outside labs/EKG scanned, COVID screen @ 05/16/21 Primary Care Provider Michael Oquendo Seen Specialist in Last 12 Months Yes Specialist Seen Orthopedist Primary Language Filipino Manager Business Development Hospice Required No Height 182.88 cm Weight 113.398 kg Body Mass Index (BMI) 33.9 Hearing Ability Normal Visual Assist Contacts,Glasses Dentition Type Teeth, Natural Present Barriers to Learning None Hx Anesthesia Reactions Yes: PONV Hx Family Anesthesia Reaction No Hx Malignant Hyperthermia No Hx Blood Transfusions No Anesthesia Review Requested No alcohol intake former Smoking Status Never smoker Substance Use Type does not use Pain Present Pain Reported Musculoskeletal Symptoms Joint Pain,Limited Range of Motion History of Falling (Recent or History of No ) Patient is completely paralyzed or No completely immobile Mental Status Oriented to own ability Is patient on oxygen? No Does patient have NELSON/SOB No Hx Sleep Apnea No Currently Taking a Beta Eddi No Can You Climb a Flight of Stairs Without Yes SOB Hx Chest Pain No Hx SOB No Hx Syncope or Dizziness No Anti-Coagulant Therapy No Has a Slubber Operator No Cardiac Testing No Hx Pacemaker/ICD No Pacemaker Rep Required? No Cardiac Clearance Received Not Applicable Diet Type At Home Regular dysphagia No Urinary Catheter Present No Hx Urinary Self Catheterization No Diabetes No Hx Drug Resistant Organism Yes Presence of External or Internal Medical Yes: Cervical, bilat knees Devices Have you had any close contact with No someone diagnosed with COVID-19? Received a COVID vaccine? Yes: Pfizer booster Received all doses? Yes Marital Status Lives With spouse Prior Living Arrangements House Number of Floors (Floors) One Floor Support System Spouse Patient Discharge Plan Description Return Home Comment Pt advised overnight length of stay per surgeon Feels Safe in Current Environment Yes Been Physically Hurt or Threatened By a No Person in Current Environment Do you have thoughts of harming yourself None or others? Are you currently considering suicide? No Do you have a plan to hurt yourself or No Plan others? Do You Have Any Spiritual Beliefs That No May Affect Your HC Choices? Do You Have Any Cultural Practices That No May Affect Your HC Choices? Who Can We Speak to About Patient's Care Family, friends Identifying Code for Release of Patient Declines to issue Information Health Care Proxy/Next of Kin Radha () Health Care Proxy Emergency Contact Name Radha () Emergency Contact Advance Directives? No Power of Ivf Embryologist No PAC Instructions Medications to take/avoid, Nasal antibiotic,No ETOH/ petroleum product on skin DOS, NPO,Post-op transportation, Sensory aids,Sturdy shoes/ comfortable clothes,Do not bring valuables and remove jewelry
== END 2021-05-20 13:00 | disposition home or self-care (01) | DRG 483 ==
LOC: AC 08:32
PROVIDERS: Admitting Provider Orthopaedic Surgery; PCP Family Medicine; Referring Provider Orthopaedic Surgery; Visit Provider Orthopaedic Surgery
PROC: 0RRJ00Z Replacement of Right Shoulder Joint with Reverse Ball and Socket Synthetic Substitute, Open Approach (ICD-10-PCS; CPT 23472; principal; 2021-05-19 10:15)
DX: M75.121 Complete rotator cuff tear or rupture of right shoulder, not specified as traumatic (principal); I10 Essential (primary) hypertension; M19.91 Primary osteoarthritis, unspecified site; G89.29 Other chronic pain; Z20.822 Contact with and (suspected) exposure to COVID-19
CPT/HCPCS: 36415; 64450; 73030; 85014; 85018; 94760; 94762; 97161; 97530; 97535; C1776; J0171; J0330; J0690; J1100; J1170; J2250; J2405; J2704; J3010

== ENCOUNTER → 2021-10-14 10:27 | Outpatient (CLI) | payer OTHER, SELFPAY ==
[2021-05-19 08:32] VITALS: BMI 33.9
[2021-10-14 12:15] LABS: COVID19 -Nasal RAPID Negative (Negative)
== END ==
PROVIDERS: PCP Family Medicine; Visit Provider Physical Medicine & Rehabilitation
DX: Z20.822 Contact with and (suspected) exposure to COVID-19 (principal)
CPT/HCPCS: 87635; C9803

== ENCOUNTER 2021-10-16 08:32 | Outpatient (CLI) | payer OTHER, SELFPAY ==
[2021-05-19 08:32] VITALS: BMI 33.9
[2021-10-16] VITALS (10 sets, daily range): BP systolic 121–179; BP diastolic 58–104; PULSE 74–86; RESP 12–20; TEMP 36.6; O2SAT 98–100
--- NOTE | 2021-10-16 08:35 | DI.RAD.S_ITS ---
PROCEDURE: PAIN C/T TRANFORAMINAL INJECT INDICATIONS: SPINAL STENOSIS COMPARISON: [facility], CR, XR CERVICAL SPINE 2 OR 3 VIEWS, 08/19/2021, 14:12. FINDINGS: Fluoroscopic spot filming was performed to verify placement of a spinal needle at the superior C7 level, as labeled on the films. Appropriate location of the needle tip was confirmed by injection of iodinated contrast. IMPRESSION: Intraprocedural examination within normal limits. Dictated by: Devonte Jimenez M.D. on 10/16/2021 at 10:21 Approved by: Devonte Jimenez M.D. on 10/16/2021 at 10:22
[2021-10-16] MEDS: MIDAZOLAM 5 MG/5 ML VIAL IV (09:34)
--- NOTE | 2021-10-16 09:59 | PM.PROC.IR.1 ---
Date/Time/Diagnoses Date of procedure: 10/16/21 Time of procedure: 10:00 Pre-procedure diagnosis: 1. FORAMINAL STENOSIS Post-procedure diagnosis: same Procedure Notes Procedure: 1. FLUOROSCOPICALLY GUIDED, CONTRAST-CONTROLLED LEFT C7 SELECTIVE NERVE ROOT BLOCK Indications: Chinmay is referred by Dr. Nicholas and Dr. Oquendo for treatment of Cervical stenosis with left UE symptoms. Physician: Kobi Brito Total Fluoroscopy time (seconds): 19 Total sedation minutes: 19 Complications: none Procedure in detail & Post-procedure care: DESCRIPTION OF PROCEDURE Fluoroscopically guided, contrast-controlled left C7 selective nerve root block. Following review of allergy and review of potential side effects and complications, including, but not necessarily limited to, infection, allergic reaction, local tissue breakdown, temporary as well as permanent nerve injury, stroke, paralysis, and possible , the patient indicated that the patient understood and agreed to proceed. An informed consent document was signed by the patient, witnessed by a nurse, and placed in the patient's chart. Additionally, other treatment options including modalities, medications, and physical therapy were reviewed with the patient. After review of previous anaesthesic history and IV conscious sedation the patient was deemed safe to proceed with today?s procedure with IV conscious sedation as ASA class II designation. Safety time-out was performed to confirm patient ID, procedure to be performed and site of procedure. IV sedation was accomplished with a combination of 5mg of Versed administered by the RN after DO order, titrated to patient comfort during the course of the procedure while the patient remained responsive to all verbal commands In the prone position following sterile prep and drape of the cervical region, the left C6/7 posterior neural foramen was identified fluoroscopically. The skin was anesthetized via a 25-gauge 1.5-inch needle with 1% lidocaine solution. At this point, a 25-gauge 2.5-inch short bevel needle was atraumatically introduced and advanced under fluoroscopic guidance to the position of the left C6/7 neural foramen and superior. Radiological data, including multiple fluoroscopic views of the cervical spine, reveal a spinal needle at the left C6/7posterior neural foramen. Subsequent views show flow of contrast material flowing superiorly and inferiorly along the nerve root confirming selective nerve root block as well as into the epidural space confirming epidural flow. DSA fluoroscopy with live contrast injection, again, confirmed no vascular or intrathecal uptake. At this point, nerve root flow was confirmed following negative aspiration with live injection with DSA of approximately 1.5 cc of Isovue-M 200, showing neural flow without vascular or intrathecal uptake. Subsequently, a test dose of 1.5 cc of .25% Marcaine solution was injected and patient was observed for two minutes without signs or symptoms of complications, including abdominal pain, shortness of breath, bilateral upper or lower extremity weakness, nausea and vomiting. The procedure tolerated the procedure well without signs or symptoms of complications prior to transfer to the recovery area continued monitoring without incident. The patient was then transferred to the recovery area where they were observed for an appropriate period of time after the injection. The patient reported a VAS score of 7 prior to the procedure and a post-procedure VAS of 2. POST OP INSTRUCTIONS They were provided a Pain Log to continue to record their response to the target-specific procedure prior to their follow-up visit with their referring physician. Additionally, specific post-injection care instructions and a contact number to our office was provided if concerns arise regarding possible complications associated with the procedure are suspected.
[2021-10-16] MEDS: BUPIVACAINE 0.25% (PF) VIAL 2 ML INJ (10:05)
[2021-10-16] MEDS: IOPAMIDOL 15 ML VIAL 3 ML INJ (10:06)
[2021-10-16] MEDS: DEXAMETHASONE 10 MG/ML VIAL 30 MG INJ (10:06)
== END 2021-10-16 10:10 | disposition home or self-care (01) ==
LOC: RAD 08:33
PROVIDERS: PCP Family Medicine; Referring Provider Physical Medicine & Rehabilitation; Visit Provider Physical Medicine & Rehabilitation
DX: M48.02 Spinal stenosis, cervical region (principal)
CPT/HCPCS: 64479; 99152; J1100; J2250

== ENCOUNTER → 2022-03-26 08:47 | Outpatient (CLI) | payer BC, SELFPAY ==
[2021-05-19 08:32] VITALS: BMI 33.9
--- NOTE | 2022-03-26 08:48 | DI.MRI.S_ITS ---
PROCEDURE: MR LUMBAR SPINE WO CON INDICATIONS: Left L5 radiculopathy TECHNIQUE: Noncontrast sagittal T1 spin echo and T2 fast echo, sagittal STIR, and T2 fast spin echo through the lumbar spine. In cases with scoliosis, additional coronal T2 fast spin echo may be performed. COMPARISON: None. FINDINGS: Image quality: Excellent. Alignment and Curvature: There is normal bony alignment. Bone Marrow: Marrow is of normal overall signal. No acute vertebral body compression fractures. Spinal Cord: Conus medullaris terminates at the L1 level. Visualized cord demonstrates normal signal and size. Paraspinous Soft Tissues: No paravertebral masses. T12-L1: Normal appearance. L1-L2: Disc space narrowing and circumferential disc bulge present with mild central stenosis. No foraminal stenosis L2-L3: Disc space narrowing with posterior disc bulge, hypertrophic facet joints and ligamentum flavum laxity results in moderate central stenosis. Moderate bilateral foraminal stenosis greater on the left. L3-L4: Disc space narrowing with circumferential disc bulge and hypertrophic facet joints combined with ligamentum flavum laxity to result in moderate central stenosis. Severe right and left foraminal stenosis present. L4-L5: Disc height is preserved. Circumferential disc bulge with hypertrophic facet joints and ligamentum flavum laxity results in moderate central stenosis. Severe bilateral foraminal stenosis. L5-S1: Disc space narrowing with posterior disc bulge asymmetric to the right results in effacement of the right lateral recess with displacement of the descending nerve root. Severe bilateral foraminal stenosis present. IMPRESSION: Multilevel degenerative disc disease and arthropathy results in varying degrees of central and foraminal stenosis including moderate central stenosis at L2-3, L3-4 and L4-5 with severe foraminal stenosis L3-4, L4-5 and L5-S1 Approved by: Chidi Benitez M.D. on 03/26/2022 at 11:52
== END ==
PROVIDERS: PCP Family Medicine; Referring Provider Physical Medicine & Rehabilitation; Visit Provider Physical Medicine & Rehabilitation
DX: M96.1 Postlaminectomy syndrome, not elsewhere classified (principal); M51.36 Other intervertebral disc degeneration, lumbar region; M48.061 Spinal stenosis, lumbar region without neurogenic claudication; M47.816 Spondylosis without myelopathy or radiculopathy, lumbar region
CPT/HCPCS: 72148

== ENCOUNTER 2022-04-16 08:04 | Outpatient (CLI) | payer BC, SELFPAY ==
[2021-05-19 08:32] VITALS: BMI 33.9
[2022-04-16] VITALS (7 sets, daily range): BP systolic 141–176; BP diastolic 65–98; PULSE 70–84; RESP 10–20; TEMP 36.2; O2SAT 96–100
--- NOTE | 2022-04-16 08:06 | DI.RAD.S_ITS ---
PROCEDURE: PAIN L/S TRANSFORAMINAL INJECT INDICATIONS: SPONDYLOSIS COMPARISON: [facility], , PAIN L/S TRANSFORAMINAL INJECT, 11/22/2018, 15:23. FINDINGS: Fluoroscopic spot filming was performed to verify placement of spinal needles at the left L5-S1 level(s), as labeled on the films. Appropriate location(s) of the needle tip(s) was confirmed by injection of iodinated contrast. IMPRESSION: Image guidance provided. Dictated by: Vaughn Nova M.D. on 04/16/2022 at 12:00 Approved by: Vaughn Nova M.D. on 04/16/2022 at 12:01
[2022-04-16] MEDS: MIDAZOLAM 2 MG/2 ML VIAL 4 MG IV (09:07)
[2022-04-16] MEDS: IOPAMIDOL 15 ML VIAL 3 ML INJ (09:10)
[2022-04-16] MEDS: DEXAMETHASONE 10 MG/ML VIAL 20 MG INJ (09:10)
[2022-04-16] MEDS: BETAMETHASONE 30 MG/5 ML MDV 6 MG INJ (09:10)
[2022-04-16] MEDS: BUPIVACAINE 0.25% (PF) VIAL 2 ML INJ (09:10)
--- NOTE | 2022-04-16 09:25 | P.PCN_ITS ---
Date/Time/Diagnoses Date of procedure: 04/16/22 Time of procedure: 09:25 Pre-procedure diagnosis: 1. FORAMINAL STENOSIS WITH LE SYMPTOMS Post-procedure diagnosis: same Procedure Notes Procedure: 1. FLUOROSCOPICALLY GUIDED CONTRAST CONTROLLED TRANSFORAMINAL EPIDURAL STEROID INJECTION - Left L5/S1 Indications: Chinmay is referred by Dr. Oquendo for treatment of Foraminal Stenosis with Left LE Symptoms Physician: Kobi Brito Total Fluoroscopy time (seconds): 15 Total sedation minutes: 13 Complications: none Procedure in detail & Post-procedure care: FINDINGS Foraminal Nerve Root Compression secondary to disc disease and facet hypertrophy DESCRIPTION OF PROCEDURE Following review of allergy and review of potential side effects and complications, including, but not necessarily limited to, infection, allergic reaction, local tissue breakdown, stroke, temporary or permanent nerve injury, paralysis, and possible , the patient indicated that the patient understood and agreed to proceed. An informed consent document was signed by the patient, witnessed by a nurse, and placed in the patient's chart. Additionally, other treatment options including medications, modalities, and physical therapy were reviewed with the patient. After review of previous anaesthesic history and IV conscious sedation the patient was deemed safe to proceed with today?s procedure with IV conscious sedation as ASA class II designation. Safety time-out was performed to confirm patient ID, procedure to be performed and site of procedure. IV sedation was accomplished with a combination of 4mg of Versed was administered by the RN after DO order, titrated to patient comfort during the course of the procedure while the patient remained responsive to all verbal commands In the prone position following sterile prep and drape of the lumbar region, the Left L5/S1 posterior neuroforamen was identified fluoroscopically. The skin was anesthetized via a 25-gauge 1.5-inch needle with 1% lidocaine solution. At this point, a 22-gauge 5-inch spinal needle was atraumatically introduced and advanced under fluoroscopic guidance through the posterior Left L5/S1 neuroforamen to approximately the anterior aspect of the canal. Depth was confirmed on lateral view. Following negative aspiration, injection of approximately 1.5 cc of Isovue 200 under live fluoroscopy in the AP view confirm ed excellent flow along the nerve root, into the epidural space without vascular or intrathecal uptake observed Radiological data, including multiple fluoroscopic views of the lumbosacral spine, reveal a spinal needle at the Left L5/S1 posterior neuroforamen. Subsequent views show flow of contrast material flowing superiorly and inferiorly along the nerve root confirming epidural flow. Subsequently, a test dose of 1.5 cc of 1% lidocaine solution was administered and patient was observed for two minutes for signs or symptoms of complications, including abdominal pain, shortness of breath, bilateral upper or lower extremity weakness, nausea and vomiting, prior to steroid injection. At this point, a total of 3cc or 20mg of dexamethasone and 6mg of betamethasone was injected without incident. The procedure tolerated the procedure well without signs or symptoms of complications prior to transfer to the recovery area continued monitoring without incident. The patient was then transferred to the recovery area where they were observed for an appropriate time after the injection. The patient reported a VAS score of 7 prior to the procedure and a post-procedure VAS of 0. POST OP INSTRUCTIONS The patient was provided a Pain Log to continue to record their response to the target-specific procedure prior to follow-up visit with their referring phys ician. Additionally, specific post-injection care instructions and a contact number to our office were provided if concerns arise regarding possible complications associated with the procedure are suspected.
== END 2022-04-16 09:37 | disposition home or self-care (01) ==
LOC: RAD 08:05
PROVIDERS: PCP Family Medicine; Referring Provider Physical Medicine & Rehabilitation; Visit Provider Physical Medicine & Rehabilitation
DX: M48.07 Spinal stenosis, lumbosacral region (principal); M51.17 Intervertebral disc disorders with radiculopathy, lumbosacral region
CPT/HCPCS: 64483; 99152; J0702; J1100; J2250; J3490

== ENCOUNTER 2022-09-24 07:55 | Outpatient (CLI) | payer BC, SELFPAY ==
[2021-05-19 08:32] VITALS: BMI 33.9
--- NOTE | 2022-09-24 07:56 | DI.RAD.S_ITS ---
PROCEDURE: PAIN L/S TRANSFORAM INJECT CHRISS COMPARISON: [facility], MR, MR LUMBAR SPINE WO CON, 03/26/2022, 9:07. [facility], XA, PAIN L/S TRANSFORAMINAL INJECT, 04/16/2022, 9:10. INDICATIONS: SPONDYLOSIS FINDINGS: Fluoroscopic spot filming was performed to verify placement of spinal needles on both sides at the L4-L5 level, as labeled on the films. Appropriate location of the needle tips was confirmed by injection of iodinated contrast. IMPRESSION: Intraprocedural examination demonstrating appropriate positions of the needles. Dictated by: Devonte Jimenez M.D. on 09/24/2022 at 14:11 Approved by: Devonte Jimenez M.D. on 09/24/2022 at 14:11
[2022-09-24 08:45] VITALS: BP 148/93; PULSE 88; RESP 18; TEMP 36.5; O2SAT 97
[2022-09-24 09:30] VITALS: BP 156/85; PULSE 82; RESP 20; O2SAT 99
[2022-09-24] MEDS: MIDAZOLAM 2 MG/2 ML VIAL IV (09:30)
[2022-09-24] MEDS: IOPAMIDOL 15 ML VIAL 3 ML INJ (09:33)
[2022-09-24] MEDS: BUPIVACAINE 0.25% (PF) VIAL 5 ML SUBCUT (09:33)
[2022-09-24] MEDS: DEXAMETHASONE 10 MG/ML VIAL 20 MG INJ (09:34)
[2022-09-24] MEDS: BETAMETHASONE 30 MG/5 ML MDV 12 MG INJ (09:34)
[2022-09-24 09:35] VITALS: BP 163/87; PULSE 73; RESP 15; O2SAT 99
[2022-09-24 09:40] VITALS: BP 152/83; PULSE 65; RESP 12; O2SAT 100
--- NOTE | 2022-09-24 09:48 | PM.PROC.IR.1 ---
Date/Time/Diagnoses Date of procedure: 09/24/22 Time of procedure: 09:48 Pre-procedure diagnosis: 1. FORAMINAL STENOSIS WITH LE SYMPTOMS Procedure Notes Procedure: 1. FLUOROSCOPICALLY GUIDED CONTRAST CONTROLLED TRANSFORAMINAL EPIDURAL STEROID INJECTION - BILATERAL L4/5 TFESI Indications: Chinmay is referred by Dr. Oquendo for treatment of Foraminal Stenosis with bilateral LE Symptoms Physician: Kobi Brito Total Fluoroscopy time (seconds): 18 Total sedation minutes: 14 Complications: none Procedure in detail & Post-procedure care: FINDINGS Foraminal Nerve Root Compression secondary to disc disease and facet hypertrophy DESCRIPTION OF PROCEDURE Following review of allergy and review of potential side effects and complications, including, but not necessarily limited to, infection, allergic reaction, local tissue breakdown, stroke, temporary or permanent nerve injury, paralysis, and possible , the patient indicated that the patient understood and agreed to proceed. An informed consent document was signed by the patient, witnessed by a nurse, and placed in the patient's chart. Additionally, other treatment options including medications, modalities, and physical therapy were reviewed with the patient. After review of previous anaesthesic history and IV conscious sedation the patient was deemed safe to proceed with today?s procedure with IV conscious sedation as ASA class II designation. Safety time-out was performed to confirm patient ID, procedure to be performed and site of procedure. IV sedation was accomplished with a combination of 2mg of Versed was administered by the RN after DO order, titrated to patient comfort during the course of the procedure while the patient remained responsive to all verbal commands In the prone position following sterile prep and drape of the lumbar region, the right L4/5 posterior neuroforamen was identified fluoroscopically. The skin was anesthetized via a 25-gauge 1.5-inch needle with 1% lidocaine solution. At this point, a 25-gauge 3.5-inch spinal needle was atraumatically introduced and advanced under fluoroscopic guidance through the posterior right L4/5 neuroforamen to approximately the anterior aspect of the canal. Depth was confirmed on lateral view. Following negative aspiration, injection of approximately 1.5cc of Isovue 200 under live fluoroscopy in the AP view confirmed excellent flow along the nerve root, into the epidural space without vascular or intrathecal uptake observed Radiological data, including multiple fluoroscopic views of the lumbosacral spine, reveal a spinal needle at the right L4/5 posterior neuroforamen. Subsequent views show flow of contrast material flowing superiorly and inferiorly along the nerve root confirming epidural flow. Subsequently, a test dose of 1.5cc of 1% lidocaine solution was administered and patient was observed for two minutes for signs or symptoms of complications, including abdominal pain, shortness of breath, bilateral upper or lower extremity weakness, nausea and vomiting, prior to steroid injection. At this point, a total of 3cc or 20mg of dexamethasone and 6mg betamethasone was injected without incident. Attention was then refocused to the left L4/5 level where the identical procedure was replicated. The procedure tolerated the procedure well without signs or symptoms of complications prior to transfer to the recovery area continued monitoring without incident. The patient was then transferred to the recovery area where they were observed for an appropriate time after the injection. The patient reported a VAS score of 7 prior to the procedure and a post-procedure VAS of 0. POST OP INSTRUCTIONS The patient was provided a Pain Log to continue to record their response to the target-specific procedure prior to follow-up visit with their referring physician. Additionally, specific post-injection care instructions and a contact number to our office were provided if concerns arise regarding possible complications associated with the procedure are suspected.
[2022-09-24 09:55] VITALS: BP 165/98; PULSE 77; RESP 17; O2SAT 99
[2022-09-24 10:00] VITALS: BP 132/73; PULSE 67; RESP 16; O2SAT 98
== END 2022-09-24 10:04 | disposition home or self-care (01) ==
PROVIDERS: PCP Family Medicine; Referring Provider Physical Medicine & Rehabilitation; Visit Provider Physical Medicine & Rehabilitation
DX: M48.061 Spinal stenosis, lumbar region without neurogenic claudication (principal); M51.16 Intervertebral disc disorders with radiculopathy, lumbar region
CPT/HCPCS: 64483; 99152; J0702; J1100; J2250; J3490

== ENCOUNTER 2022-12-10 08:33 | Outpatient (CLI) | payer BC, SELFPAY ==
[2021-05-19 08:32] VITALS: BMI 33.9
[2022-12-10] VITALS (8 sets, daily range): BP systolic 104–154; BP diastolic 58–89; PULSE 105–113; RESP 13–26; TEMP 36.9; O2SAT 95–97
--- NOTE | 2022-12-10 08:34 | DI.RAD.S_ITS ---
PROCEDURE: PAIN C/T INTERLAMINAR INJECT INDICATIONS: SPINAL STENOSIS COMPARISON: [facility], , PAIN C/T INTERLAMINAR INJECT, 09/05/2020, 8:26. FINDINGS: Fluoroscopic spot filming was performed to verify placement of a spinal needle at the C6-C7 level, as labeled on the films. Appropriate location of the needle tip was confirmed by injection of iodinated contrast. IMPRESSION: No significant intraprocedural abnormality. Dictated by: Devonte Jimenez M.D. on 12/10/2022 at 9:20 Approved by: Devonte Jimenez M.D. on 12/10/2022 at 9:20
[2022-12-10] MEDS: MIDAZOLAM 2 MG/2 ML VIAL 6 MG IV (09:43)
[2022-12-10] MEDS: DEXAMETHASONE 10 MG/ML VIAL 30 MG INJ (09:45)
[2022-12-10] MEDS: IOPAMIDOL 15 ML VIAL 3 ML INJ (09:46)
[2022-12-10] MEDS: BUPIVACAINE 0.25% (PF) VIAL 2 ML INJ (09:46)
--- NOTE | 2022-12-10 10:02 | P.PCN_ITS ---
Date/Time/Diagnoses Date of procedure: 12/10/22 Time of procedure: 10:02 Pre-procedure diagnosis: 1. CERVICAL STENOSIS, 2. CERVICAL HNP WITH UPPER EXTREMITY RADICULAR FEATURES Post-procedure diagnosis: same Procedure Notes Procedure: 1. FLUORSCOPICALLY GUIDED CONTRAST CONTROLLED INTERLAMINAR EPIDURAL STEROID INJECTION - C6/7 TL CAYLA Indications: Chinmay is referred by Dr. Nicholas for treatment of Cervical HNP with Upper Extremity Paresthesias. Physician: Kobi Brito Total Fluoroscopy time (seconds): 44 Total sedation minutes: 18 Complications: none Procedure in detail & Post-procedure care: FINDINGS Cervical Stenosis due to disc deterioration and nerve root irritation and nerve root irritation DESCRIPTION OF PROCEDURE Fluoroscopically guided, contrast-controlled C6/7 translaminar epidural steroid injection with conscious sedation. Following review of allergy and review of potential side effects and complications, including, but not necessarily limited to, infection, allergic reaction, local tissue breakdown, temporary as well as permanent nerve injury, stroke, paralysis, and possible , the patient indicated that patient understood and agreed to proceed. An informed consent document was signed by the patient, witnessed by a nurse, and placed in the patient's chart. Additionally, other treatment options including modalities, medications, and physical therapy were reviewed with the patient. After review of previous anaesthesic history and IV conscious sedation the patient was deemed safe to proceed with today?s procedure with IV conscious ash tion as ASA class II designation. Safety time-out was performed to confirm patient ID, procedure to be performed and site of procedure. IV sedation was accomplished with a combination of 6mg of Versed administered by the RN after DO order, titrated to patient comfort during the course of the procedure while the patient remained responsive to all verbal commands. In the prone position, following sterile prep and drape of the cervical region, the C6/7 translaminar space was identified fluoroscopically. The skin was anesthetized via a 25-gauge 1.5-inch needle with 1% lidocaine solution. At this point, a 25-gauge, 2.5-inch short bevel spinal needle was atraumatically introduced and advanced under fluoroscopic guidance into epidural space at the C6/7 translaminar space. Depth was confirmed on lateral view. Radiological data, including multiple fluoroscopic views of the cervical spine, reveal a spinal needle at the C6/7 translaminar space. Lateral views then show placement of the needle in the epidural space. Subsequent views show contrast material flowing superiorly and inferiorly in the epidural space. DSA fluoroscopy with live contrast injection, once again, confirmed no vascular or intrathecal uptake. At this point, using loss of resistance technique with saline and air, the epidural space was entered. Following negative aspiration, injection of approximately 1.5 cc of Isovue-200 with live fluoroscopy in the AP view confirmed epidural flow in the epidural space without vascular or intrathecal uptake observed. Subsequently, a test dose of 1 cc of 1% lidocaine solution was injected and patient was observed for two minutes without signs or symptoms of complications, including abdominal pain, shortness of breath, bilateral upper or lower extremity weakness, nausea and vomiting, prior to steroid injection. At this point, 3cc or 30mg of dexamethasone was then injected without incident. The patient tolerated the procedure well without signs or symptoms of com plications prior to being transferred to the recovery area for further monitoring, The patient was then transferred to the recovery area where they were observed for an appropriate period of time after the injection. The patient reported a VAS score of 8 prior to the procedure and a post-procedure VAS of 1. POST OP INSTRUCTIONS The patient was provided a Pain Log to continue to record their response to the target-specific procedure prior to follow-up visit with the referring provider. Additionally, specific post-injection care instructions and a contact number to our office were provided if concerns arise regarding possible complications associated with the procedure are suspected.
== END 2022-12-10 10:18 | disposition home or self-care (01) ==
LOC: RAD 08:34
PROVIDERS: PCP Family Medicine; Referring Provider Physical Medicine & Rehabilitation; Visit Provider Physical Medicine & Rehabilitation
DX: M48.02 Spinal stenosis, cervical region (principal); M50.123 Cervical disc disorder at C6-C7 level with radiculopathy
CPT/HCPCS: 62321; 99152; J1100; J2250; J3490

== ENCOUNTER 2023-02-04 07:31 | Outpatient (CLI) | payer BC, SELFPAY ==
[2021-05-19 08:32] VITALS: BMI 33.9
[2023-02-04] VITALS (9 sets, daily range): BP systolic 136–170; BP diastolic 68–92; PULSE 69–89; RESP 11–20; TEMP 36.3; O2SAT 96–99
--- NOTE | 2023-02-04 07:32 | DI.RAD.S_ITS ---
PROCEDURE: PAIN L/S TRANSFORAM INJECT CHRISS COMPARISON: [facility], XA, PAIN L/S TRANSFORAM INJECT CHRISS, 09/24/2022, 9:33. [facility], XA, PAIN C/T INTERLAMINAR INJECT, 12/10/2022, 9:44. INDICATIONS: SPONDYLOSIS FINDINGS: Fluoroscopic spot filming was performed to verify placement of spinal needles on both sides at the L4-L5 level, as labeled on the films. Appropriate location of the needle tips was confirmed by injection of iodinated contrast. IMPRESSION: Intraprocedural examination demonstrating appropriate positions of the needles. Dictated by: Devonte Jimenez M.D. on 02/04/2023 at 12:03 Approved by: Devonte Jimenez M.D. on 02/04/2023 at 12:03
[2023-02-04] MEDS: MIDAZOLAM 2 MG/2 ML VIAL 4 MG IV (08:46)
[2023-02-04] MEDS: IOPAMIDOL 15 ML VIAL 3 ML INJ (08:49)
[2023-02-04] MEDS: DEXAMETHASONE 10 MG/ML VIAL 20 MG INJ (08:50)
[2023-02-04] MEDS: BUPIVACAINE 0.25% (PF) VIAL 2 ML INJ (08:50)
[2023-02-04] MEDS: BETAMETHASONE 30 MG/5 ML MDV 12 MG INJ (08:50)
--- NOTE | 2023-02-04 09:09 | PM.PROC.IR.1 ---
Date/Time/Diagnoses Date of procedure: 02/04/23 Time of procedure: 09:09 Pre-procedure diagnosis: 1. FORAMINAL STENOSIS WITH LE SYMPTOMS Procedure Notes Procedure: 1. FLUOROSCOPICALLY GUIDED CONTRAST CONTROLLED TRANSFORAMINAL EPIDURAL STEROID INJECTION - BILATERAL L4/5 TFESI Indications: Roby is referred by Dr. Oquendo for treatment of Foraminal Stenosis with bilateral LE Symptoms Physician: Kobi Brito Total Fluoroscopy time (seconds): 26 Total sedation minutes: 26 Complications: none Procedure in detail & Post-procedure care: FINDINGS Foraminal Nerve Root Compression secondary to disc disease and facet hypertrophy DESCRIPTION OF PROCEDURE Following review of allergy and review of potential side effects and complications, including, but not necessarily limited to, infection, allergic reaction, local tissue breakdown, stroke, temporary or permanent nerve injury, paralysis, and possible , the patient indicated that the patient understood and agreed to proceed. An informed consent document was signed by the patient, witnessed by a nurse, and placed in the patient's chart. Additionally, other treatment options including medications, modalities, and physical therapy were reviewed with the patient. After review of previous anaesthesic history and IV conscious sedation the patient was deemed safe to proceed with today?s procedure with IV conscious sedation as ASA class II designation. Safety time-out was performed to confirm patient ID, procedure to be performed and site of procedure. IV sedation was accomplished with a combination of 4mg of Versed was administered by the RN after DO order, titrated to patient comfort during the course of the procedure while the patient remained responsive to all verbal commands In the prone position following sterile prep and drape of the lumbar region, the right L4/5 posterior neuroforamen was identified fluoroscopically. The skin was anesthetized via a 25-gauge 1.5-inch needle with 1% lidocaine solution. At this point, a 25-gauge 3.5-inch spinal needle was atraumatically introduced and advanced under fluoroscopic guidance through the posterior right L4/5 neuroforamen to approximately the anterior aspect of the canal. Depth was confirmed on lateral view. Following negative aspiration, injection of approximately 1.5cc of Isovue 200 under live fluoroscopy in the AP view confirmed excellent flow along the nerve root, into the epidural space without vascular or intrathecal uptake observed Radiological data, including multiple fluoroscopic views of the lumbosacral spine, reveal a spinal needle at the right L4/5 posterior neuroforamen. Subsequent views show flow of contrast material flowing superiorly and inferiorly along the nerve root confirming epidural flow. Subsequently, a test dose of 1.5cc of 1% lidocaine solution was administered and patient was observed for two minutes for signs or symptoms of complications, including abdominal pain, shortness of breath, bilateral upper or lower extremity weakness, nausea and vomiting, prior to steroid injection. At this point, a total of 3cc or 10mg of dexamethasone and 6mg betamethasone was injected without incident. Attention was then refocused to the left L4/5 level where the identical procedure was replicated. The procedure tolerated the procedure well without signs or symptoms of complications prior to transfer to the recovery area continued monitoring without incident. The patient was then transferred to the recovery area where they were observed for an appropriate time after the injection. The patient reported a VAS score of 7 prior to the procedure and a post-procedure VAS of 0. POST OP INSTRUCTIONS The patient was provided a Pain Log to continue to record their response to the target-specific procedure prior to follow-up visit with their referring physician. Additionally, specific post-injection care instructions and a contact number to our office were provided if concerns arise regarding possible complications associated with the procedure are suspected.
== END 2023-02-04 09:21 | disposition home or self-care (01) ==
LOC: RAD 07:32
PROVIDERS: PCP Family Medicine; Referring Provider Physical Medicine & Rehabilitation; Visit Provider Physical Medicine & Rehabilitation
DX: M48.061 Spinal stenosis, lumbar region without neurogenic claudication (principal); M51.16 Intervertebral disc disorders with radiculopathy, lumbar region; M47.26 Other spondylosis with radiculopathy, lumbar region
CPT/HCPCS: 64483; 99152; 99153; J0702; J1100; J2250; J3490

== ENCOUNTER 2023-07-20 08:13 | Outpatient (CLI) | payer BC, SELFPAY ==
[2021-05-19 08:32] VITALS: BMI 33.9
[2023-07-20] VITALS (8 sets, daily range): BP systolic 146–177; BP diastolic 63–97; PULSE 73–84; RESP 11–19; TEMP 36.4; O2SAT 96–99
--- NOTE | 2023-07-20 08:45 | DI.RAD.S_ITS ---
PROCEDURE: PAIN L/S TRANSFORAM INJECT CHRISS COMPARISON: [facility], XA, PAIN L/S TRANSFORAM INJECT CHRISS, 02/04/2023, 8:45. INDICATIONS: stenosis FINDINGS: Intraoperative fluoroscopy used for transforaminal epidural steroid injection bilaterally at the L4-5 levels. Fluoroscopy demonstrates appropriate placement needles bilaterally, injection of contrast and subsequent washout. IMPRESSION: Intraoperative fluoroscopy for transforaminal epidural steroid injection. Dictated by: Maine Brar M.D. on 07/20/2023 at 12:04 Approved by: Maine Brar M.D. on 07/20/2023 at 12:05
[2023-07-20] MEDS: MIDAZOLAM 2 MG/2 ML VIAL 4 MG IV (09:19)
[2023-07-20] MEDS: BUPIVACAINE 0.25% (PF) VIAL 2 ML INJ (09:22)
[2023-07-20] MEDS: iopamidoL 15 ML VIAL 3 ML INJ (09:23)
[2023-07-20] MEDS: DEXAMETHASONE 10 MG/ML VIAL 20 MG INJ (09:23)
[2023-07-20] MEDS: BETAMETHASONE 30 MG/5 ML MDV 12 MG INJ (09:23)
[2023-07-20] MEDS: BUPIVACAINE 0.5% (PF) 10 ML VIAL SUBCUT (09:24)
--- NOTE | 2023-07-20 09:39 | PM.PROC.IR.1 ---
Date/Time/Diagnoses Date of procedure: 07/20/23 Time of procedure: 09:39 Pre-procedure diagnosis: 1. FORAMINAL STENOSIS WITH LE SYMPTOMS Procedure Notes Procedure: 1. FLUOROSCOPICALLY GUIDED CONTRAST CONTROLLED TRANSFORAMINAL EPIDURAL STEROID INJECTION - BILATERAL L4/5 TFESI Indications: Chinmay is referred by Dr. Nicholas for treatment of Foraminal Stenosis with bilateral LE Symptoms Physician: Kobi Brito Total Fluoroscopy time (seconds): 17 Total sedation minutes: 16 Complications: none Procedure in detail & Post-procedure care: FINDINGS Foraminal Nerve Root Compression secondary to disc disease and facet hypertrophy DESCRIPTION OF PROCEDURE Following review of allergy and review of potential side effects and complications, including, but not necessarily limited to, infection, allergic reaction, local tissue breakdown, stroke, temporary or permanent nerve injury, paralysis, and possible , the patient indicated that the patient understood and agreed to proceed. An informed consent document was signed by the patient, witnessed by a nurse, and placed in the patient's chart. Additionally, other treatment options including medications, modalities, and physical therapy were reviewed with the patient. After review of previous anaesthesic history and IV conscious sedation the patient was deemed safe to proceed with today?s procedure with IV conscious sedation as ASA class II designation. Safety time-out was performed to confirm patient ID, procedure to be performed and site of procedure. IV sedation was accomplished with a combination of 4mg of Versed was administered by the RN after DO order, titrated to patient comfort during the course of the procedure while the patient remained responsive to all verbal commands In the prone position following sterile prep and drape of the lumbar region, the right L4/5 posterior neuroforamen was identified fluoroscopically. The skin was anesthetized via a 25-gauge 1.5-inch needle with 1% lidocaine solution. At this point, a 25-gauge 3.5-inch spinal needle was atraumatically introduced and advanced under fluoroscopic guidance through the posterior right L4/5 neuroforamen to approximately the anterior aspect of the canal. Depth was confirmed on lateral view. Following negative aspiration, injection of approximately 1.5cc of Isovue 200 under live fluoroscopy in the AP view confirmed excellent flow along the nerve root, into the epidural space without vascular or intrathecal uptake observed Radiological data, including multiple fluoroscopic views of the lumbosacral spine, reveal a spinal needle at the right L4/5 posterior neuroforamen. Subsequent views show flow of contrast material flowing superiorly and inferiorly along the nerve root confirming epidural flow. Subsequently, a test dose of 1.5cc of 1% lidocaine solution was administered and patient was observed for two minutes for signs or symptoms of complications, including abdominal pain, shortness of breath, bilateral upper or lower extremity weakness, nausea and vomiting, prior to steroid injection. At this point, a total of 2cc or 10mg of dexamethasone and 6mg betamethasone was injected without incident. Attention was then refocused to the left L4/5 level where the identical procedure was replicated. The procedure tolerated the procedure well without signs or symptoms of complications prior to transfer to the recovery area continued monitoring without incident. The patient was then transferred to the recovery area where they were observed for an appropriate time after the injection. The patient reported a VAS score of 7 prior to the procedure and a post-procedure VAS of 0. POST OP INSTRUCTIONS The patient was provided a Pain Log to continue to record their response to the target-specific procedure prior to follow-up visit with their referring physician. Additionally, specific post-injection care instructions and a contact number to our office were provided if concerns arise regarding possible complications associated with the procedure are suspected.
== END 2023-07-20 09:54 | disposition home or self-care (01) ==
LOC: RAD 08:13
PROVIDERS: PCP Family Medicine; Referring Provider Physical Medicine & Rehabilitation; Visit Provider Physical Medicine & Rehabilitation
DX: M48.061 Spinal stenosis, lumbar region without neurogenic claudication (principal); M51.16 Intervertebral disc disorders with radiculopathy, lumbar region; M47.26 Other spondylosis with radiculopathy, lumbar region
CPT/HCPCS: 64483; 99152; J0702; J1100; J2250; J3490

== ENCOUNTER 2025-03-13 13:16 | Outpatient (CLI) | payer BC, SELFPAY ==
[2024-08-16 10:03] VITALS: BMI 33.9
[2025-03-13] VITALS (10 sets, daily range): BP systolic 108–148; BP diastolic 65–92; PULSE 74–85; RESP 14–17; TEMP 36.6; O2SAT 94–100
[2025-03-13] MEDS: MIDAZOLAM 2 MG/2 ML VIAL 4 MG IV (14:34)
[2025-03-13] MEDS: MIDAZOLAM 2 MG/2 ML VIAL IV (14:42)
[2025-03-13] MEDS: BETAMETHASONE 30 MG/5 ML MDV 12 MG INJ (14:48)
--- NOTE | 2025-03-13 14:52 | PM.PROC.IR.1 ---
Date/Time/Diagnoses Date of procedure: 03/13/25 Time of procedure: 14:52 Pre-procedure diagnosis: 1. FORAMINAL STENOSIS WITH LE SYMPTOMS Procedure Notes Procedure: 1. FLUOROSCOPICALLY GUIDED CONTRAST CONTROLLED TRANSFORAMINAL EPIDURAL STEROID INJECTION - BILATERAL L4/5 TFESI Indications: Chinmay is referred by Dr. Oquendo for treatment of Foraminal Stenosis with bilateral LE Symptoms Physician: Kobi Brito Total Fluoroscopy time (seconds): 16 Total sedation minutes: 18 Complications: none Procedure in detail & Post-procedure care: FINDINGS Foraminal Nerve Root Compression secondary to disc disease and facet hypertrophy DESCRIPTION OF PROCEDURE Following review of allergy and review of potential side effects and complications, including, but not necessarily limited to, infection, allergic reaction, local tissue breakdown, stroke, temporary or permanent nerve injury, paralysis, and possible , the patient indicated that the patient understood and agreed to proceed. An informed consent document was signed by the patient, witnessed by a nurse, and placed in the patient's chart. Additionally, other treatment options including medications, modalities, and physical therapy were reviewed with the patient. After review of previous anaesthesic history and IV conscious sedation the patient was deemed safe to proceed with today?s procedure with IV conscious sedation as ASA class II designation. Safety time-out was performed to confirm patient ID, procedure to be performed and site of procedure. IV sedation was accomplished with a combination of 6mg of Versed was administered by the RN after DO order, titrated to patient comfort during the course of the procedure while the patient remained responsive to all verbal commands In the prone position following sterile prep and drape of the lumbar region, the right L4/5 posterior neuroforamen was identified fluoroscopically. The skin was anesthetized via a 25-gauge 1.5-inch needle with 1% lidocaine solution. At this point, a 25-gauge 3.5-inch spinal needle was atraumatically introduced and advanced under fluoroscopic guidance through the posterior right L4/5 neuroforamen to approximately the anterior aspect of the canal. Depth was confirmed on lateral view. Following negative aspiration, injection of approximately 1.5cc of Isovue 200 under live fluoroscopy in the AP view confirmed excellent flow along the nerve root, into the epidural space without vascular or intrathecal uptake observed Radiological data, including multiple fluoroscopic views of the lumbosacral spine, reveal a spinal needle at the right L4/5 posterior neuroforamen. Subsequent views show flow of contrast material flowing superiorly and inferiorly along the nerve root confirming epidural flow. Subsequently, a test dose of 1.5cc of 1% lidocaine solution was administered and patient was observed for two minutes for signs or symptoms of complications, including abdominal pain, shortness of breath, bilateral upper or lower extremity weakness, nausea and vomiting, prior to steroid injection. At this point, a total of 2cc or 10mg of dexamethasone and 6mg betamethasone was injected without incident. Attention was then refocused to the left L4/5 level where the identical procedure was replicated. The procedure tolerated the procedure well without signs or symptoms of complications prior to transfer to the recovery area continued monitoring without incident. The patient was then transferred to the recovery area where they were observed for an appropriate time after the injection. The patient reported a VAS score of 7 prior to the procedure and a post-procedure VAS of 0. POST OP INSTRUCTIONS The patient was provided a Pain Log to continue to record their response to the target-specific procedure prior to follow-up visit with their referring physician. Additionally, specific post-injection care instructions and a contact number to our office were provided if concerns arise regarding possible complications associated with the procedure are suspected.
== END 2025-03-13 15:15 | disposition home or self-care (01) ==
PROVIDERS: PCP Family Medicine; Referring Provider Physical Medicine & Rehabilitation; Visit Provider Physical Medicine & Rehabilitation
DX: M48.061 Spinal stenosis, lumbar region without neurogenic claudication (principal); M51.16 Intervertebral disc disorders with radiculopathy, lumbar region; M47.26 Other spondylosis with radiculopathy, lumbar region
CPT/HCPCS: 64483; 99152; J0702; J1100; J2250